=== PATIENT | female | born 1995 | race Hispanic/Latino ===

== ENCOUNTER 2018-04-21 21:23 | Emergency (ER) | payer SELFPAY ==
[2018-04-21] MEDS ORDERED: IBUPROFEN 200 MG TAB PO ONE (23:33)
[2018-04-21] MEDS ORDERED: ACETAMINOPHEN 500 MG TAB ONE (23:33)
[2018-04-21] MEDS ORDERED: IBUPROFEN 400 MG TAB ONE (23:33)
[2018-04-21 23:59] LABS: Absolute Monocytes 0.6 K/uL (0.1-1.3); Absolute Neutrophil 4.2 K/uL (1.8-8.0); Basophils % 0.7 % (0-1.3); Eosinophils % 1.4 % (0-4.4); MCH 29.3 pg (27.0-35.0); MCV 88.8 fL (80-100); MPV 10.1 fL (7.6-11.3); Monocytes % 7.2 % (3.3-12.3)
[2018-04-22 00:05] LABS: Urine Blood NEGATIVE (NEG); Urine Glucose NEGATIVE (NEG); Urine Specific Gravity 1.015 (1.005-1.030)
[2018-04-22 00:06] LABS: Urine Protein NEGATIVE (NEG)
[2018-04-22 00:16] LABS: ALT/SGPT 17 U/L (12-78); AST/SGOT 9 U/L (15-37); Albumin 3.8 g/dL (3.4-5.0); Alkaline Phosphatase 94 U/L (45-117); BUN Blood Urea Nitrogen 9 mg/dL (7-18); Bicarbonate 30 mmol/L (21-32); Bilirubin Direct < 0.1 mg/dL (0-0.2); Bilirubin Total 0.2 mg/dL (0.2-1.0); Glucose Level 97 mg/dL (74-106); Potassium 3.4 mmol/L (3.5-5.1); Protein, Total 7.7 g/dL (6.4-8.2); Sodium Level 141 mmol/L (136-145)
--- NOTE | 2018-04-22 04:43 | EDPHYS ---
Physician Documentation [facility] Name: Kathy Gallegos Age: 22 yrs Sex: Female : 1995 Arrival Date: 04/21/2018 Time: 21:24 Bed 17 Private MD: ED Physician Mauro Antonio HPI: 04/22 02:21 This 22 yrs old Female presents to ER via Ambulatory with complaints of Chest wa Pain. 02:21 The patient or guardian reports chest pain that is located primarily in the anterior wa aspect of right upper chest. The pain does not radiate. Associated signs and symptoms: Pertinent negatives: abdominal pain, cough, shortness of breath. The chest pain is described as sharp. Duration: The patient or guardian reports a single episode, that is still ongoing, and unchanged, and worsening. Modifying factors: The symptoms are alleviated by nothing. the symptoms are aggravated by nothing. Severity of pain: At its worst the pain was moderate in the emergency department the pain is unchanged. The patient has not experienced similar symptoms in the past. The patient has not recently seen a physician. 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 - Social history:: Smoking status: Patient/guardian denies using tobacco. - Ebola Screening: : No symptoms or risks identified at this time. - Family history:: not pertinent. - Hospitalizations: : No recent hospitalization is reported. ROS: 04/22 02:22 Constitutional: Negative for fever, chills, and weight loss, Eyes: Negative for injury, wa pain, redness, and discharge, ENT: Negative for injury, pain, and discharge, Neck: Negative for injury, pain, and swelling, Abdomen/GI: Negative for abdominal pain, nausea, vomiting, diarrhea, and constipation, Back: Negative for injury and pain, : Negative for injury, bleeding, discharge, and swelling, MS/Extremity: Negative for injury and deformity, Skin: Negative for injury, rash, and discoloration, Neuro: Negative for headache, weakness, numbness, tingling, and seizure, Psych: Negative for depression, anxiety, suicide ideation, homicidal ideation, and hallucinations. Cardiovascular: Positive for chest pain, of the anterior aspect of right upper chest, Negative for edema, orthopnea, palpitations. Respiratory: Positive for Negative for cough, dyspnea on exertion, shortness of breath, wheezing. All other systems are negative. Exam: 02:23 Constitutional: This is a well developed, well nourished patient who is awake, alert, wa and in no acute distress. Head/Face: Normocephalic, atraumatic. Eyes: Pupils equal round and reactive to light, extra-ocular motions intact. Lids and lashes normal. Conjunctiva and sclera are non-icteric and not injected. Cornea within normal limits. Periorbital areas with no swelling, redness, or edema. ENT: Nares patent. No nasal discharge, no septal abnormalities noted. Tympanic membranes are normal and external auditory canals are clear. Oropharynx with no redness, swelling, or masses, exudates, or evidence of obstruction, uvula midline. Mucous membranes moist. Neck: Trachea midline, no thyromegaly or masses palpated, and no cervical lymphadenopathy. Supple, full range of motion without nuchal rigidity, or vertebral point tenderness. No Meningismus. Respiratory: Lungs have equal breath sounds bilaterally, clear to auscultation and percussion. No rales, rhonchi or wheezes noted. No increased work of breathing, no retractions or nasal flaring. Abdomen/GI: Soft, non-tender, with normal bowel sounds. No distension or tympany. No guarding or rebound. No evidence of tenderness throughout. Back: No spinal tenderness. No costovertebral tenderness. Full range of motion. Skin: Warm, dry with normal turgor. Normal color with no rashes, no lesions, and no evidence of cellulitis. MS/ Extremity: Pulses equal, no cyanosis. Neurovascular intact. Full, normal range of motion. Neuro: Awake and alert, GCS 15, oriented to person, place, time, and situation. Cranial nerves II-XII grossly intact. Motor strength 5/5 in all extremities. Sensory grossly intact. Cerebellar exam normal. Normal gait. Psych: Awake, alert, with orientation to person, place and time. Behavior, mood, and affect are within normal limits. 02:23 Chest/axilla: Inspection: normal, Palpation: tenderness, that is moderate, of the anterior aspect of right upper chest. 02:23 Cardiovascular: Rate: normal, Rhythm: regular, Pulses: no pulse deficits are appreciated, Heart sounds: normal, Edema: is not appreciated. Vital Signs: 04/21 21:35 BP 123 / 86; Pulse 64; Resp 16; Temp 97.4(TE); Pulse Ox 100% on R/A; Weight 81.65 kg lk1 (R); Height 5 ft. 3 in. (160.02 cm) (R); Pain 8/10; 23:03 BP 102 / 72; Pulse 61; Resp 17 S; Pulse Ox 97% on R/A; jd3 04/22 00:44 BP 102 / 74; Pulse 64; Resp 17 S; Pulse Ox 100% on R/A; jd3 01:57 BP 102 / 74; Pulse 58; Resp 16 S; Pulse Ox 99% on R/A; jd3 03:47 BP 120 / 73; Pulse 65; Resp 16 S; Pulse Ox 98% on R/A; jd3 04:59 BP 105 / 76; Pulse 57; Resp 16 S; Pulse Ox 100% on R/A; jd3 04/21 21:35 Body Mass Index 31.89 (81.65 kg, 160.02 cm) lk1 MDM: 04/21 21:46 Patient medically screened. wv 04/22 02:23 Differential diagnosis: post- x 4 months. reproducible pain. check x-rays. wa consider PE. screen with d-dimer. reassess. 04:50 Data reviewed: vital signs, nurses notes, lab test result(s), radiologic studies. Test wa interpretation: by ED physician or midlevel provider: labs noted wnl. CXR: nml. CT chest: no PE. no acute process. 04/21 23:27 Order name: Basic Metabolic Panel 04/21 23:27 Order name: CBC with Diff 04/21 23:27 Order name: LFT's 04/21 23:27 Order name: Magnesium 04/21 23:27 Order name: D-Dimer; Complete Time: 00:51 04/21 23:27 Order name: Basic Metabolic Panel; Complete Time: 00:51 EDMS 04/21 23:27 Order name: CBC with Automated Diff; Complete Time: 00:51 EDMS 04/21 23:27 Order name: Liver (Hepatic) Function; Complete Time: 00:51 EDMS 04/21 23:27 Order name: Magnesium; Complete Time: 00:51 EDSC 04/21 23:52 Order name: Urine Dipstick--Ancillary (enter results); Complete Time: 00:51 [facility] 04/21 23:52 Order name: Urine --Ancillary (enter results); Complete Time: 00:51 [facility] 04/22 00:51 Order name: Chest Pa And Lat (2 Views) XRAY wv 04/22 01:52 Order name: CT Chest W/ Con wv 04/21 23:27 Order name: Cardiac monitoring; Complete Time: 23:28 wv 04/21 23:27 Order name: IV Saline Lock; Complete Time: 23:52 wv 04/21 23:27 Order name: Labs collected and sent; Complete Time: 23:53 wv 04/21 23:27 Order name: Urine Test (obtain specimen); Complete Time: 23:52 wv 04/21 23:27 Order name: Urine Dipstick-Ancillary (obtain specimen); Complete Time: 23:52 wv Administered Medications: 04/21 23:44 Drug: Tylenol 1000 mg Route: PO; [facility] 04/22 05:00 Follow up: Response: No adverse reaction [facility] 04/21 23:44 Drug: Motrin 600 mg Route: PO; [facility] 04/22 05:00 Follow up: Response: No adverse reaction [facility] Disposition: 04/22/18 04:42 Discharged to Home. Impression: Acute Right Side Chest Pain. - Condition is Stable. - Discharge Instructions: Nonspecific Chest Pain, [id number]. - Prescriptions for Ibuprofen 600 mg Oral Tablet - take 1 tablet by ORAL route every 8 hours As needed take with food; 20 tablet. - Medication Reconciliation Form, Thank You Letter, Antibiotic Education, Prescription Opioid Use, Family Work Release form. - Follow up: Private Physician; When: 2 - 3 days; Reason: Recheck today's complaints. - Problem is new. - Symptoms have improved. - Notes: take pain medicine as prescribed. follow up with your doctor within 3-5 days Signatures: Dispatcher [employer] Gloria Florentino RN RN lk1 Mauro Antonio MD MD wa Davies, Jonathon RN RN jd3 Corrections: (The following items were deleted from the chart) 05:01 04:42 04/22/2018 04:42 Discharged to Home. Impression: Acute Right Side Chest Pain. jd3 Condition is Stable. Forms are Medication Reconciliation Form, Thank You Letter, Antibiotic Education, Prescription Opioid Use. Follow up: Private Physician; When: 2 - 3 days; Reason: Recheck today's complaints. Problem is new. Symptoms have improved. wa
--- NOTE | 2018-04-22 04:43 | ER ---
Nurse's Notes [facility] Name: Kathy Gallegos Age: 22 yrs Sex: Female : 1995 Arrival Date: 04/21/2018 Time: 21:24 Bed 17 Private MD: Diagnosis: Acute Right Side Chest Pain Presentation: 04/21 21:34 Presenting complaint: Patient states: "I have had chest pains before, but not constant. lk1 Now I have had pains in my right side for 3 days and I am having trouble catching my breath.". Transition of care: patient was not received from another setting of care. Onset of symptoms was April 18, 2018. Risk Assessment: Do you want to hurt yourself or someone else? Patient reports no desire to harm self or others. Initial Sepsis Screen: Does the patient meet any 2 criteria? No. Patient's initial sepsis screen is negative. Does the patient have a suspected source of infection? No. Patient's initial sepsis screen is negative. Care prior to arrival: None. 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 - Social history:: Smoking status: Patient/guardian denies using tobacco. - Ebola Screening: : No symptoms or risks identified at this time. - Family history:: not pertinent. - Hospitalizations: : No recent hospitalization is reported. Screenin:04 Abuse screen: Denies threats or abuse. Nutritional screening: No deficits noted. jd3 Tuberculosis screening: No symptoms or risk factors identified. Fall Risk Ambulatory Aid- None/Bed Rest/Nurse Assist (0 pts). Gait- Normal/Bed Rest/Wheelchair (0 pts) Mental Status- Oriented to own ability (0 pts). Total Portillo Fall Scale indicates No Risk (0-24 pts). Assessment: 21:55 General: Appears uncomfortable, Behavior is calm, cooperative, appropriate for age. jd3 Pain: Complains of pain in anterior aspect of right upper chest Pain does not radiate. Quality of pain is described as sharp, Pain began 2-3 days ago. Is continuous. Neuro: Level of Consciousness is awake, alert, obeys commands, Oriented to person, place, time, situation. Cardiovascular: Heart tones S1 S2 present Capillary refill < 3 seconds Patient's skin is warm and dry. Respiratory: Airway is patent Respiratory effort is even, unlabored, Respiratory pattern is regular, symmetrical, Breath sounds are clear bilaterally. GI: Abdomen is round Bowel sounds present X 4 quads. Abd is soft and non tender X 4 quads. : No signs and/or symptoms were reported regarding the genitourinary system. EENT: No signs and/or symptoms were reported regarding the EENT system. Derm: Skin is intact, Skin is dry, Skin is normal, Skin temperature is warm. Musculoskeletal: Circulation, motion, and sensation intact. Range of motion: intact in all extremities. 23:04 Reassessment: Patient appears in no apparent distress at this time. Patient and/or jd3 family updated on plan of care and expected duration. Pain level reassessed. Patient is alert, oriented x 3, equal unlabored respirations, skin warm/dry/pink. 04/22 00:44 Reassessment: Patient appears in no apparent distress at this time. Patient and/or jd3 family updated on plan of care and expected duration. Pain level reassessed. Patient is alert, oriented x 3, equal unlabored respirations, skin warm/dry/pink. 01:58 Reassessment: Patient appears in no apparent distress at this time. Patient and/or jd3 family updated on plan of care and expected duration. Pain level reassessed. Patient is alert, oriented x 3, equal unlabored respirations, skin warm/dry/pink. 02:45 Reassessment: Patient appears in no apparent distress at this time. Patient and/or jd3 family updated on plan of care and expected duration. Pain level reassessed. Patient is alert, oriented x 3, equal unlabored respirations, skin warm/dry/pink. 03:48 Reassessment: Patient appears in no apparent distress at this time. Patient and/or jd3 family updated on plan of care and expected duration. Pain level reassessed. Patient is alert, oriented x 3, equal unlabored respirations, skin warm/dry/pink. 04:58 Reassessment: Patient appears in no apparent distress at this time. Patient and/or jd3 family updated on plan of care and expected duration. Pain level reassessed. Patient is alert, oriented x 3, equal unlabored respirations, skin warm/dry/pink. pt reported understanding of discharge instructions, even and steady gait upon discharge. Vital Signs: 04/21 21:35 BP 123 / 86; Pulse 64; Resp 16; Temp 97.4(TE); Pulse Ox 100% on R/A; Weight 81.65 kg lk1 (R); Height 5 ft. 3 in. (160.02 cm) (R); Pain 8/10; 23:03 BP 102 / 72; Pulse 61; Resp 17 S; Pulse Ox 97% on R/A; jd3 04/22 00:44 BP 102 / 74; Pulse 64; Resp 17 S; Pulse Ox 100% on R/A; jd3 01:57 BP 102 / 74; Pulse 58; Resp 16 S; Pulse Ox 99% on R/A; jd3 03:47 BP 120 / 73; Pulse 65; Resp 16 S; Pulse Ox 98% on R/A; jd3 04:59 BP 105 / 76; Pulse 57; Resp 16 S; Pulse Ox 100% on R/A; jd3 04/21 21:35 Body Mass Index 31.89 (81.65 kg, 160.02 cm) lk1 ED Course: 04/21 21:24 Patient arrived in ED. ds1 21:35 Triage completed. lk1 21:37 Arm band placed on left wrist. lk1 21:46 Mauro Antonio MD is Attending Physician. wa 21:51 Maximo Mcduffie RN is Primary Nurse. jd3 22:04 Patient has correct armband on for positive identification. Bed in low position. Call j light in reach. Side rails up X 1. cryptologic support specialist on. Pulse ox on. NIBP on. 22:04 Patient maintains SpO2 saturation greater than 95% on room air. jd3 23:35 Inserted saline lock: 22 gauge in right antecubital area, using aseptic technique. mw2 Blood collected. 04/22 01:05 Patient moved to radiology via wheelchair. kw 01:05 X-ray completed. Patient tolerated procedure well. kw 01:05 Patient moved back from radiology. kw 01:06 Chest Pa And Lat (2 Views) XRAY In Process Unspecified. EDMS 03:[address] via wheelchair. kw1 03:25 CT completed. Patient tolerated procedure well. Patient moved back from CT. kw1 03:25 CT Chest W/ Con In Process Unspecified. EDKS 04:57 No provider procedures requiring assistance completed. IV discontinued, intact, jd3 bleeding controlled, No redness/swelling at site. Pressure dressing applied. Administered Medications: 04/21 23:44 Drug: Tylenol 1000 mg Route: PO; jd3 04/22 05:00 Follow up: Response: No adverse reaction jd3 04/21 23:44 Drug: Motrin 600 mg Route: PO; jd3 04/22 05:00 Follow up: Response: No adverse reaction jd3 Outcome: 04:42 Discharge ordered by . va 04:57 Discharged to home ambulatory, with family. jd3 04:57 Condition: stable 04:57 Discharge instructions given to patient, Instructed on discharge instructions, follow up and referral plans. medication usage, Demonstrated understanding of instructions, follow-up care, medications, Prescriptions given X 1. 05:01 Patient left the ED. jd3 Signatures: Dispatcher [employer] EDKS Leonor Lloyd Kimberlee kw Kluge, Leah, RN RN lk1 Mauro Antonio MD MD wa Davies, Jonathon RN RN Zarina Bahena kw1 Holli Blanc mw2
--- NOTE | 2018-04-22 08:56 | RAD REPORT ---
EXAM DESCRIPTION: RAD - Chest Pa And Lat (2 Views) - 04/22/2018 1:07 am CLINICAL HISTORY: R side chest pain Chest pain. COMPARISON: Thorax W/ Con dated 04/22/2018 FINDINGS: The lungs are clear. The heart is normal in size. No displaced fractures. IMPRESSION: No acute or concerning finding suspected.
--- NOTE | 2018-04-22 09:16 | RAD REPORT ---
EXAM DESCRIPTION: CT - Thorax W/ Con CLINICAL HISTORY: Chest pain R side chest pain COMPARISON: Chest Pa And Lat (2 Views) dated 04/22/2018 FINDINGS: The lungs are clear. No pleural thickening or pleural effusion. No pneumothorax. No axillary, mediastinal or hilar adenopathy. No concerning bony finding. Small hiatal hernia, mild fatty liver. All CT scans are performed using dose optimization technique as appropriate and may include automated exposure control or mA/KV adjustment according to patient size. IMPRESSION: No acute or worrisome intrathoracic abnormality.
== END 2018-04-22 05:01 | disposition home or self-care (01) ==
LOC: ER 21:23
DX: R07.89 Other chest pain (principal); Z88.1 Allergy status to other antibiotic agents
CPT/HCPCS: 36415; 71046; 71260; 80048; 80076; 81003; 81025; 83735; 85025; 85379; 99285; Q9967

== ENCOUNTER 2018-05-31 11:16 | Emergency (ER) | payer OTHER, SELFPAY ==
[2018-05-31 12:31] LABS: Absolute Lymphocytes (CBC) 1.7 K/uL (0.7-4.9); Absolute Monocytes 0.5 K/uL (0.1-1.3); Absolute Neutrophil 4.7 K/uL (1.8-8.0); Basophils % 0.5 % (0-1.3); Eosinophils % 1.2 % (0-4.4); Hematocrit 38.2 % (36.0-45.0); MCH 30.2 pg (27.0-35.0); MCV 88.8 fL (80-100); MPV 9.5 fL (7.6-11.3); Monocytes % 7.1 % (3.3-12.3); RBC Red Blood Cell Count 4.31 M/uL (3.86-4.86)
[2018-05-31 12:45] LABS: ALT/SGPT 15 U/L (12-78); AST/SGOT 9 U/L (15-37); Albumin 3.4 g/dL (3.4-5.0); Alkaline Phosphatase 76 U/L (45-117); Amylase Level 27 U/L (25-115); BUN Blood Urea Nitrogen 12 mg/dL (7-18); Bicarbonate 30 mmol/L (21-32); Bilirubin Direct 0.1 mg/dL (0-0.2); Bilirubin Total 0.4 mg/dL (0.2-1.0); Glucose Level 80 mg/dL (74-106); Lipase 95 U/L (73-393); Potassium 3.8 mmol/L (3.5-5.1); Protein, Total 7.2 g/dL (6.4-8.2); Sodium Level 139 mmol/L (136-145)
[2018-05-31 12:59] LABS: Specific Gravity 1.025 (1.005-1.030)
[2018-05-31 13:17] LABS: Urine Blood NEGATIVE (NEG); Urine Glucose NEGATIVE (NEG); Urine Protein NEGATIVE (NEG)
[2018-05-31 13:36] LABS: Urine RBC <5 /HPF (NONE SEEN)
[2018-05-31 13:37] LABS: Urine Bacteria <20 /HPF (<20); Urine Culture Reflex Order NOT NEEDED
--- NOTE | 2018-05-31 14:01 | RAD REPORT ---
EXAM DESCRIPTION: US - Transvaginal Study Probe - 05/31/2018 1:35 pm CLINICAL HISTORY: Pelvic pain COMPARISON: none FINDINGS: The uterus measures 9 x 5 x 6 centimeters. A sac is present within the endometrium measuri ng 1.3 x 0.6 x 1.5 centimeters. A pole is not seen. A yolk sac is not clearly visualized. The ovaries are normal in size and echotexture. No significant free fluid is seen. IMPRESSION: Sac within the endometrium probably representing a gestational sac associated with an in trauterine . Followup ultrasound in 1 week is recommended. Serial beta HCG levels should als o be obtained.
--- NOTE | 2018-05-31 15:29 | EDPHYS ---
Physician Documentation [facility] Name: Kathy Gallegos Age: 22 yrs Sex: Female : 1995 Arrival Date: 05/31/2018 Time: 11:19 Bed 8 Private MD: None, None ED Physician Trace Lyons HPI: 05/31 11:56 This 22 yrs old Female presents to ER via Ambulatory with complaints of cp Abdominal Cramping, Vomiting. 11:56 The patient presents with abdominal pain in the lower abdomen. cp 11:56 Onset: The symptoms/episode began/occurred 1 week(s) ago. The symptoms radiate to left cp back. Associated signs and symptoms: Pertinent positives: nausea, vaginal discharge, Pertinent negatives: constipation, diarrhea, dysuria, fever, vomiting, vaginal bleeding. The symptoms are described as crampy. Modifying factors: the symptoms are aggravated by pressure. 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 - Social history:: Smoking status: Patient/guardian denies using tobacco. - Ebola Screening: : No symptoms or risks identified at this time. ROS: 12:00 Constitutional: Negative for body aches, chills, fever, poor PO intake. cp 12:00 Eyes: Negative for injury, pain, redness, and discharge. cp 12:00 ENT: Negative for drainage from ear(s), ear pain, sore throat, difficulty swallowing, difficulty handling secretions. 12:00 Cardiovascular: Negative for chest pain, edema, palpitations. 12:00 Respiratory: Negative for cough, shortness of breath, wheezing. 12:00 Abdomen/GI: Positive for abdominal pain, nausea, of the left lower quadrant, Negative for vomiting, diarrhea, constipation, anorexia, black/tarry stool, rectal bleeding. 12:00 Back: Positive for radiated pain, of the left low back. 12:00 : Positive for vaginal discharge, Negative for urinary symptoms, flank pain, vaginal bleeding. 12:00 Skin: Negative for cellulitis, rash. 12:00 Neuro: Negative for altered mental status, dizziness, headache, weakness. 12:00 All other systems are negative. Exam: 12:07 Constitutional: The patient appears in no acute distress, alert, awake, comfortable, cp non-toxic, well developed, well nourished. 12:07 Head/Face: Normocephalic, atraumatic. cp 12:07 Eyes: Periorbital structures: appear normal, Conjunctiva: normal, no exudate, no cp injection, Sclera: no appreciated abnormality, Lids and lashes: appear normal, bilaterally. 12:07 ENT: External ear(s): are unremarkable, Nose: is normal, Mouth: Lips: moist, Oral mucosa: moist, Posterior pharynx: is normal, airway is patent, no erythema, no exudate, Voice: is normal. 12:07 Chest/axilla: Inspection: normal. cp 12:07 Cardiovascular: Rate: normal, Rhythm: regular. 12:07 Respiratory: the patient does not display signs of respiratory distress, Respirations: normal, no use of accessory muscles, no retractions, no splinting, no tachypnea, labored breathing, is not present, Breath sounds: are clear throughout, no decreased breath sounds, no stridor, no wheezing. 12:07 Abdomen/GI: Inspection: abdomen appears normal, Bowel sounds: active, all quadrants, Palpation: soft, in all quadrants, mild abdominal tenderness, in the left lower quadrant, rebound tenderness, is not appreciated, voluntary guarding, is not appreciated, involuntary guarding, is not appreciated. 12:07 Back: pain, that is mild, of the left low back, ROM is normal, Straight leg raises: of both lower extremities does not illicit pain. 12:07 Skin: cellulitis, is not appreciated, no rash present. Vital Signs: 11:29 BP 121 / 73; Pulse 84; Resp 16; Temp 98.4; Pulse Ox 100% on R/A; Pain 8/10; hb 12:45 BP 113 / 64; Pulse 83; Resp 16; Pulse Ox 100% ; jl7 14:15 BP 109 / 92; Pulse 80; Resp 16; Pulse Ox 100% ; jl7 15:30 BP 112 / 74; Pulse 79; Resp 16 S; Pulse Ox 100% on R/A; jl7 MDM: 11:33 Patient medically screened. cp 15:28 Data reviewed: vital signs, nurses notes, lab test result(s), radiologic studies, cp ultrasound. 15:28 Differential diagnosis: appendicitis, Dysmenorrhea, Ectopic , Endometriosis, cp Menorrhagia, non-specific abd pain, Ovarian Torsion, Pelvic Inflammatory Disease, Pyelonephritis, Tubal Ovarian Abcess, Ureterolithiasis, urinary tract infection. Counseling: I had a detailed discussion with the patient and/or guardian regarding: the historical points, exam findings, and any diagnostic results supporting the discharge/admit diagnosis, lab results, radiology results, the need for outpatient follow up, an OB/Gyne specialist, to return to the emergency department if symptoms worsen or persist or if there are any questions or concerns that arise at home. Special discussion: Based on the patient's Hx, exam, and Dx evaluation, there is no indication for emergent surgery or inpatient Tx. It is understood by the patient/guardian that if the Sx's persist or worsen they need to return immediately for re-evaluation. ED course: VSS. Discussed results of labs and US that showed early IUP. Will discharge to home with instructions for pelvic rest and to repeat beta-hcg in 48 hrs and US 1 week. 05/31 11:39 Order name: Urine Microscopic Only cp 05/31 11:56 Order name: Amylase, Serum cp 05/31 11:56 Order name: Basic Metabolic Panel cp 05/31 11:56 Order name: CBC with Diff cp 05/31 11:56 Order name: Creatinine for Radiology cp 05/31 11:56 Order name: Hepatic Function cp 05/31 11:56 Order name: Lipase cp 05/31 12:24 Order name: Urine Dipstick--Ancillary (enter results) eb 05/31 12:34 Order name: CBC with Automated Diff; Complete Time: 12:53 EDMS 05/31 12:45 Order name: Basic Metabolic Panel; Complete Time: 12:53 EDMS 05/31 12:45 Order name: Liver (Hepatic) Function; Complete Time: 12:53 EDMS 05/31 12:45 Order name: Amylase Level; Complete Time: 12:53 EDMS 05/31 12:45 Order name: Lipase; Complete Time: 12:53 EDMS 05/31 12:45 Order name: Creatinine (Radiology Only); Complete Time: 12:53 EDMS 05/31 11:39 Order name: Urine Dipstick-Ancillary (obtain specimen); Complete Time: 12:22 cp 05/31 11:39 Order name: Urine Test (obtain specimen); Complete Time: 12:22 05/31 11:56 Order name: IV Saline Lock; Complete Time: 12:22 05/31 11:56 Order name: Labs collected and sent; Complete Time: 12:22 05/31 12:59 Order name: Test, Urine; Complete Time: 14:17 EDMS 05/31 13:01 Order name: US Transvaginal Study (Probe) 05/31 13:13 Order name: HCG-Quantitative 05/31 13:17 Order name: Urine Dipstick-Ancillary; Complete Time: 14:17 EDMS 05/31 13:37 Order name: Urine Microscopic Only; Complete Time: 14:17 EDMS 05/31 13:46 Order name: HCG, Quantitative; Complete Time: 14:17 EDMS 05/31 14:01 Order name: US; Complete Time: 14:17 EDMS 05/31 14:21 Order name: Rh Type 05/31 14:21 Order name: LAB Add On 05/31 15:36 Order name: ABO/RH typing; Complete Time: 15:56 EDMS Administered Medications: No medications were administered Disposition: 19:05 Co-signature as Attending Physician, Trace Lyons MD. rn Disposition: 05/31/18 15:29 Discharged to Home. Impression: related conditions, unspecified, first trimester, Lower abdominal pain, unspecified. - Condition is Stable. - Discharge Instructions: Abdominal Pain During , Pelvic Rest. - Prescriptions for Vitamin 27- 0.8 mg Oral Tablet - take 1 tablet by ORAL route once daily; 60 tablet. - Medication Reconciliation Form, Thank You Letter, Antibiotic Education, Prescription Opioid Use form. - Follow up: Private Physician; When: 48 Hours; Reason: Repeat Beta-HCG (48 Hours), 1 week f/u for repeat ultrasound. - Problem is new. - Symptoms have improved. Signatures: Dispatcher [employer] EDTrace Thompson MD MD rn Page, Corey, PA PA cp Baxter, Heather, RN RN hb Leal, Jahala, RN RN jl7 Corrections: (The following items were deleted from the chart) 15:57 15:29 05/31/2018 15:29 Discharged to Home. Impression: related conditions, jl7 unspecified, first trimester; Lower abdominal pain, unspecified. Condition is Stable. Forms are Medication Reconciliation Form, Thank You Letter, Antibiotic Education, Prescription Opioid Use. Follow up: Private Physician; When: 48 Hours; Reason: Repeat Beta-HCG (48 Hours), 1 week f/u for repeat ultrasound. Problem is new. Symptoms have improved. cp
--- NOTE | 2018-05-31 15:29 | ER ---
Nurse's Notes [facility] Name: Kathy Gallegos Age: 22 yrs Sex: Female : 1995 Arrival Date: 05/31/2018 Time: 11:19 Bed 8 Private MD: None, None Diagnosis: related conditions, unspecified, first trimester;Lower abdominal pain, unspecified Presentation: 05/31 11:27 Presenting complaint: Patient states: Left sided abdominal pain that radiates to left hb mid back and nausea x 1 week. Denies urinary s/s. Reports normal bowels. Transition of care: patient was not received from another setting of care. Onset of symptoms was May 25, 2018. Care prior to arrival: None. 11:27 Method Of Arrival: Ambulatory 11:27 Acuity: SPRING 3 hb 15:30 Risk Assessment: Do you want to hurt yourself or someone else? Patient reports no jl7 desire to harm self or others. Initial Sepsis Screen: Does the patient meet any 2 criteria? No. Patient's initial sepsis screen is negative. Does the patient have a suspected source of infection? No. Patient's initial sepsis screen is negative. 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 - Social history:: Smoking status: Patient/guardian denies using tobacco. - Ebola Screening: : No symptoms or risks identified at this time. Screenin:15 Abuse screen: Denies threats or abuse. Denies injuries from another. Nutritional ss screening: No deficits noted. Tuberculosis screening: Never had TB. Fall Risk None identified. Assessment: 12:15 General: Appears in no apparent distress. comfortable, Behavior is calm, cooperative, ss Denies fever, chills. Pain: Complains of pain in suprapubic area, right lower quadrant and left lower quadrant Pain currently is 8 out of 10 on a pain scale. Pain began x 1 week Is intermittent. Neuro: Level of Consciousness is awake, alert, obeys commands, Oriented to person, place, time, situation. Cardiovascular: Pulses are palpable in right radial artery and left radial artery. Respiratory: Airway is patent Respiratory effort is even, unlabored, Respiratory pattern is regular, symmetrical. GI: Bowel sounds present X 4 quads. Abd is soft and non tender X 4 quads. Patient currently denies cramping, nausea, vomiting. : Urine is clear, Denies burning with urination, urinary frequency, vaginal bleeding. EENT: Nares are clear Oral mucosa is moist. Derm: Skin is intact, is healthy with good turgor, Skin is pink, warm \T\ dry. normal. Musculoskeletal: Circulation, motion, and sensation intact. Range of motion: intact in all extremities, Swelling absent. 13:15 Reassessment: Patient and/or family updated on plan of care and expected duration. Pain jl7 level reassessed. Patient is alert, oriented x 3, equal unlabored respirations, skin warm/dry/pink. 14:15 Reassessment: Patient and/or family updated on plan of care and expected duration. Pain jl7 level reassessed. Patient is alert, oriented x 3, equal unlabored respirations, skin warm/dry/pink. 15:29 Reassessment: Pt will be discharged once lab results are complete. jl7 Vital Signs: 11:29 BP 121 / 73; Pulse 84; Resp 16; Temp 98.4; Pulse Ox 100% on R/A; Pain 8/10; hb 12:45 BP 113 / 64; Pulse 83; Resp 16; Pulse Ox 100% ; jl7 14:15 BP 109 / 92; Pulse 80; Resp 16; Pulse Ox 100% ; jl7 15:30 BP 112 / 74; Pulse 79; Resp 16 S; Pulse Ox 100% on R/A; jl7 ED Course: 11:19 Patient arrived in ED. sb2 11:20 None, None is Private Physician. sb2 11:29 Triage completed. hb 11:29 Arm band placed on right wrist. hb 11:33 Terell Ray PA is PHCP. cp 11:33 Trace Lyons MD is Attending Physician. cp 12:10 Brodie Diaz RN is Primary Nurse. jl7 12:14 Inserted saline lock: 20 gauge in right antecubital area, using aseptic technique. ss Blood collected. 12:14 Urine collected: clean catch specimen, clear. ss 12:15 Patient has correct armband on for positive identification. Bed in low position. Call ss light in reach. Side rails up X 1. 12:23 Urine Microscopic Only Sent. ss 12:23 Amylase, Serum Sent. ss 12:23 Basic Metabolic Panel Sent. ss 12:23 CBC with Diff Sent. ss 12:23 Creatinine for Radiology Sent. ss 12:23 Hepatic Function Sent. ss 12:23 Lipase Sent. ss 13:14 Note: US DONE PORTABLE/BEDSIDE IN ER. hr 15:32 Rh Type Sent. jl7 15:32 LAB Add On Sent. jl7 15:55 No provider procedures requiring assistance completed. IV discontinued, intact, jl7 bleeding controlled, No redness/swelling at site. Pressure dressing applied. Administered Medications: No medications were administered Outcome: 15:29 Discharge ordered by . elena 15:55 Discharged to home ambulatory. jl7 15:55 Condition: stable 15:55 Discharge instructions given to patient, Instructed on discharge instructions, follow up and referral plans. medication usage, Demonstrated understanding of instructions, follow-up care, medications, Prescriptions given X 1. 15:57 Patient left the ED. jl7 Signatures: Mishel Garvey Shelby, RN RN ss Terell Ray, PA PA cp Yulia Eagle, RN RN Brodie Diaz RN RN jl7 Kim Baltazar sb2
== END 2018-05-31 15:57 | disposition home or self-care (01) ==
LOC: ER 11:16
DX: R10.30 Lower abdominal pain, unspecified (principal); Z3A.00 Weeks of gestation of pregnancy not specified; Z88.1 Allergy status to other antibiotic agents
CPT/HCPCS: 36415; 76830; 80048; 80076; 81003; 81015; 81025; 82150; 83690; 84702; 85025; 86900; 86901; 99283

== ENCOUNTER 2018-09-02 12:09 | Emergency (ER) | payer OTHER ==
--- NOTE | 2018-09-02 16:36 | ER ---
Nurse's Notes [facility] Name: Kathy Gallegos Age: 23 yrs Sex: Female : 1995 Arrival Date: 09/02/2018 Time: 12:12 Bed Treatment Private MD: None, None Diagnosis: Acute upper respiratory infection, unspecified Presentation: 09/02 12:17 Presenting complaint: Patient states: Cough, congestion, and body aches for 5 days. aj Denies fever. Transition of care: patient was not received from another setting of care. Onset of symptoms was August 28, 2018. Risk Assessment: Do you want to hurt yourself or someone else? Patient reports no desire to harm self or others. Initial Sepsis Screen: Does the patient meet any 2 criteria? No. Patient's initial sepsis screen is negative. Does the patient have a suspected source of infection? No. Patient's initial sepsis screen is negative. Care prior to arrival: None. 12:17 Method Of Arrival: Ambulatory 12:17 Acuity: SPRING 3 aj Triage Assessment: 12:19 General: Appears in no apparent distress. comfortable, Behavior is calm, cooperative, aj appropriate for age. Pain: Denies pain. EENT: Reports nasal congestion nasal discharge. Neuro: Level of Consciousness is awake, alert, obeys commands, Oriented to person, place, time, situation, Appropriate for age. Respiratory: Reports shortness of breath cough that is. Derm: Skin is intact, is healthy with good turgor, Skin is pink, warm \T\ dry. normal. Historical: - Allergies: 12:19 Amoxicillin; aj - Home Meds: 12:19 Albuterol Inhl [Active]; aj - PMHx: 12:19 None; aj - PSHx: 12:19 None; aj - Immunization history:: Adult Immunizations up to date. - Social history:: Smoking status: Patient/guardian denies using tobacco. - Ebola Screening: : Patient negative for fever greater than or equal to 101.5 degrees Fahrenheit, and additional compatible Ebola Virus Disease symptoms Patient denies exposure to infectious person Patient denies travel to an Ebola-affected area in the 21 days before illness onset No symptoms or risks identified at this time. Screenin:00 Abuse screen: Denies threats or abuse. Denies injuries from another. Nutritional dm5 screening: No deficits noted. Tuberculosis screening: No symptoms or risk factors identified. Fall Risk None identified. Assessment: 15:00 Reassessment: Patient appears in no apparent distress at this time. No changes from dm5 previously documented assessment. Patient and/or family updated on plan of care and expected duration. Pain level reassessed. Patient is alert, oriented x 3, equal unlabored respirations, skin warm/dry/pink. General: Appears in no apparent distress. comfortable, Behavior is calm, cooperative. Neuro: No deficits noted. Level of Consciousness is awake, alert, obeys commands, Oriented to person, place, time. Cardiovascular: No deficits noted. Capillary refill < 3 seconds. Respiratory: Reports cough that is Airway is patent Respiratory effort is even, unlabored, Respiratory pattern is regular, Breath sounds are clear bilaterally. GI: No deficits noted. : No deficits noted. EENT: No deficits noted. Derm: No deficits noted. Musculoskeletal: No deficits noted. Vital Signs: 12:19 BP 110 / 66; Pulse 108; Resp 19; Temp 98.6(O); Pulse Ox 97% on R/A; Weight 87.09 kg; aj Height 5 ft. 3 in. (160.02 cm); 15:24 BP 110 / 70; Pulse 100; Resp 20; Temp 98.6; Pulse Ox 99% on R/A; dm5 12:19 Body Mass Index 34.01 (87.09 kg, 160.02 cm) aj Vitals: 15:24 Heart Tones 148. dm5 ED Course: 12:12 Patient arrived in ED. mr 12:13 None, None is Private Physician. mr 12:18 Triage completed. aj 12:19 Arm band placed on left wrist. Patient placed in waiting room, Patient notified of wait aj time. 14:31 Jensen Ramos NP is PHCP. pm1 14:31 Terell Dsouza MD is Attending Physician. pm1 15:00 Patient has correct armband on for positive identification. dm5 15:00 No provider procedures requiring assistance completed. Patient did not have IV access dm5 during this emergency room visit. 15:03 Mary Rivas, RN is Primary Nurse. dm5 15:57 Throat Culture Sent. dm5 Administered Medications: No medications were administered Outcome: 16:04 Discharge ordered by MD. pm1 16:21 Discharged to home ambulatory. ss 16:21 Condition: good 16:21 Discharge instructions given to patient, Instructed on discharge instructions, follow up and referral plans. medication usage, Demonstrated understanding of instructions, follow-up care, medications. 16:21 Patient left the ED. Signatures: Mary Rivas, RN Viv Smith RN RN aj Rivera, Mary mr Sanjana Chung, Jensen Montero RN, MARCO BUDDHIST MONK pm1
--- NOTE | 2018-09-02 16:36 | EDPHYS ---
Physician Documentation [facility] Name: Kathy Gallegos Age: 23 yrs Sex: Female : 1995 Arrival Date: 09/02/2018 Time: 12:12 Bed Treatment Private MD: None, None ED Physician Terell Dsouza HPI: 09/02 15:30 This 23 yrs old Female presents to ER via Ambulatory with complaints of Cough, pm1 Congestion, 18 wks . 15:30 The patient or guardian reports cough, with no sputum. Onset: The symptoms/episode pm1 began/occurred 2 day(s) ago. Severity of symptoms: in the emergency department the symptoms are unchanged. Modifying factors: The symptoms are alleviated by nothing, the symptoms are aggravated by nothing. Associated signs and symptoms: Pertinent positives: sore throat, Pertinent negatives: chest pain, diarrhea, ear ache, fever, nausea, vomiting. The patient has not experienced similar symptoms in the past. The patient has not recently seen a physician. Historical: - Allergies: 12:19 Amoxicillin; aj - Home Meds: 12:19 Albuterol Inhl [Active]; aj - PMHx: 12:19 None; aj - PSHx: 12:19 None; aj - Immunization history:: Adult Immunizations up to date. - Social history:: Smoking status: Patient/guardian denies using tobacco. - Ebola Screening: : Patient negative for fever greater than or equal to 101.5 degrees Fahrenheit, and additional compatible Ebola Virus Disease symptoms Patient denies exposure to infectious person Patient denies travel to an Ebola-affected area in the 21 days before illness onset No symptoms or risks identified at this time. ROS: 15:30 Constitutional: Negative for fever, chills, and weight loss, Eyes: Negative for injury, pm1 pain, redness, and discharge, Neck: Negative for injury, pain, and swelling. 15:30 Cardiovascular: Negative for chest pain, palpitations, and edema. 15:30 Abdomen/GI: Negative for abdominal pain, nausea, vomiting, diarrhea, and constipation, Back: Negative for injury and pain, : Negative for injury, bleeding, discharge, and swelling, MS/Extremity: Negative for injury and deformity, Skin: Negative for injury, rash, and discoloration, Neuro: Negative for headache, weakness, numbness, tingling, and seizure. 15:30 ENT: Positive for sore throat, Negative for ear pain, sinus congestion, sinus pain. 15:30 Respiratory: Positive for cough, Negative for shortness of breath, sputum production, wheezing. Exam: 15:30 Constitutional: This is a well developed, well nourished patient who is awake, alert, pm1 and in no acute distress. Head/Face: Normocephalic, atraumatic. Eyes: Pupils equal round and reactive to light, extra-ocular motions intact. Lids and lashes normal. Conjunctiva and sclera are non-icteric and not injected. Cornea within normal limits. Periorbital areas with no swelling, redness, or edema. ENT: Nares patent. No nasal discharge, no septal abnormalities noted. Tympanic membranes are normal and external auditory canals are clear. Oropharynx with no redness, swelling, or masses, exudates, or evidence of obstruction, uvula midline. Mucous membranes moist. Neck: Trachea midline, no thyromegaly or masses palpated, and no cervical lymphadenopathy. Supple, full range of motion without nuchal rigidity, or vertebral point tenderness. No Meningismus. Chest/axilla: Normal chest wall appearance and motion. Nontender with no deformity. No lesions are appreciated. Cardiovascular: Regular rate and rhythm with a normal S1 and S2. No gallops, murmurs, or rubs. Normal PMI, no JVD. No pulse deficits. 15:30 Abdomen/GI: Soft, non-tender, with normal bowel sounds. No distension or tympany. No guarding or rebound. No evidence of tenderness throughout. Back: No spinal tenderness. No costovertebral tenderness. Full range of motion. Skin: Warm, dry with normal turgor. Normal color with no rashes, no lesions, and no evidence of cellulitis. MS/ Extremity: Pulses equal, no cyanosis. Neurovascular intact. Full, normal range of motion. 15:30 Respiratory: the patient does not display signs of respiratory distress, Respirations: normal, Breath sounds: are clear throughout, no bronchial sounds, no decreased breath sounds, no rales, rhonchi, no stridor, no wheezing. 15:30 Neuro: Orientation: is normal, Motor: is normal, Sensation: is normal, no obvious gross deficits. Vital Signs: 12:19 BP 110 / 66; Pulse 108; Resp 19; Temp 98.6(O); Pulse Ox 97% on R/A; Weight 87.09 kg; aj Height 5 ft. 3 in. (160.02 cm); 15:24 BP 110 / 70; Pulse 100; Resp 20; Temp 98.6; Pulse Ox 99% on R/A; dm5 12:19 Body Mass Index 34.01 (87.09 kg, 160.02 cm) aj MDM: 14:42 Patient medically screened. [facility] 16:02 Data reviewed: vital signs. Data interpreted: Pulse oximetry: on room air is 99 %. pm1 Interpretation: normal. Counseling: I had a detailed discussion with the patient and/or guardian regarding: the historical points, exam findings, and any diagnostic results supporting the discharge/admit diagnosis, lab results, the need for outpatient follow up, to return to the emergency department if symptoms worsen or persist or if there are any questions or concerns that arise at home. 09/02 14:54 Order name: Flu; Complete Time: 15:53 pm1 09/02 14:58 Order name: Strep; Complete Time: 15:53 pm1 09/02 14:58 Order name: FHT's; Complete Time: 15:28 pm1 09/02 15:53 Order name: Throat Culture EDMS Administered Medications: No medications were administered Disposition: 09/02/18 16:04 Discharged to Home. Impression: Acute upper respiratory infection, unspecified. - Condition is Stable. - Discharge Instructions: Upper Respiratory Infection, Adult. - Work release form, Family Work Release, Medication Reconciliation Form, Thank You Letter, Antibiotic Education form. - Follow up: Emergency Department; When: As needed; Reason: Worsening of condition. Follow up: Private Physician; When: 2 - 3 days; Reason: Recheck today's complaints, Continuance of care, Re-evaluation by your physician. - Problem is new. - Symptoms have improved. Addendum: 09/05/2018 06:47 Co-signature as Attending Physician, Terell Dsouza MD I agree with the assessment and c joseph plan of care. Signatures: Dispatcher [employer] EDMS Viv Locke RN RN aj Anderson, Corey, MD MD cha Smirch, Shelby, RN RN ss Marinas, Patrick, MAR[employer] ENVIRONMENTAL SERVICES SPECIALIST pm1 Corrections: (The following items were deleted from the chart) 09/02 16:21 16:04 09/02/2018 16:04 Discharged to Home. Impression: Acute upper respiratory ss infection, unspecified. Condition is Stable. Forms are Medication Reconciliation Form, Thank You Letter, Antibiotic Education, Prescription Opioid Use. Follow up: Emergency Department; When: As needed; Reason: Worsening of condition. Follow up: Private Physician; When: 2 - 3 days; Reason: Recheck today's complaints, Continuance of care, Re-evaluation by your physician. Problem is new. Symptoms have improved. pm1
== END 2018-09-02 16:21 | disposition home or self-care (01) ==
LOC: ER 12:09
DX: J06.9 Acute upper respiratory infection, unspecified (principal); Z3A.18 18 weeks gestation of pregnancy; Z88.1 Allergy status to other antibiotic agents
CPT/HCPCS: 87070; 87081; 87804; 99283

== ENCOUNTER 2019-01-20 02:03 | Inpatient (IN) | payer OTHER ==
--- OUTSIDE RECORDS SUMMARY | 2019-01-20 05:47 | XMS REPORT ---
:1995 Author Organization [facility] Address [address] [place] [address] [address] [place] [address] Care Team Providers Name Role Phone Unavailable Unavailable Unavailable Payers Payer Name Policy Type Policy Number Effective Date Expiration Date Problems This patient has no known problems. Allergies, Adverse Reactions, Alerts Allergy Name Allergy Status Severity Reaction(s) Onset Inactive Treating Comments Type Date Date Clinician amoxicillin DA Active U 2017-11 00:00:0 0 watermelon DA Active U 2017-11 00:00:0 0 banana DA Active U 2017-11 00:00:0 0 Medications This patient has no known medications.
[2019-01-20] MEDS ORDERED: METHYLERGONOVINE 0.2MG/ML AMP IM PRN (06:25)
[2019-01-20] MEDS ORDERED: Ringers Lactate 1,000 ML IV PRN (06:25)
[2019-01-20] MEDS ORDERED: CARBOPROST TROME 250 MCG/ML IM PRN (06:25)
[2019-01-20] MEDS ORDERED: Ringers Lactate 1,000 ML IV SCH (07:00)
[2019-01-20] MEDS ORDERED: OXYTOCIN/LR 20 UNIT/1,000 ML BAG IV SCH ×2 (07:00→09:00)
[2019-01-20 07:28] VITALS: BMI 36.5
[2019-01-20] MEDS ORDERED: FENTANYL CITR 100 MCG/2 ML IV ONE (07:51)
[2019-01-20] MEDS ORDERED: ROPIVACAINE HCL 100 ML IV PRN (07:52)
[2019-01-20] MEDS ORDERED: ROPIVACAINE HCL 0.2% 20ML AMP IV ONE (07:54)
[2019-01-20] MEDS ORDERED: LIDOCAINE 1% 20 ML MDV ONE (08:16)
[2019-01-20] MEDS ORDERED: DOCUSATE NA/SENNA CONC 1 TAB PO PRN (08:18)
[2019-01-20] MEDS ORDERED: DIPHENHYDRAMINE 25 MG TAB/CAP PO PRN (08:18)
[2019-01-20] MEDS ORDERED: BISACODYL 10 MG RECTAL SUPP RECT PRN (08:18)
[2019-01-20] MEDS ORDERED: IBUPROFEN 200 MG TAB PO PRN (08:18)
[2019-01-20] MEDS ORDERED: Oxycodone HCl/Acetaminophen 1 TAB TAB PO PRN ×2 (08:18)
[2019-01-20 08:20] LABS: RPR Titer ND
[2019-01-20 08:21] LABS: Absolute Lymphocytes (CBC) 2.8 K/uL (0.7-4.9); Absolute Monocytes 0.8 K/uL (0.1-1.3); Absolute Neutrophil 10.3 K/uL (1.8-8.0); Basophils % 0.4 % (0-1.3); Eosinophils % 0.4 % (0-4.4); Hematocrit 38.7 % (36.0-45.0); Lymphocytes % 20.3 % (15.3-44.8); MPV 9.6 fL (7.6-11.3); Monocytes % 5.4 % (3.3-12.3); RBC Red Blood Cell Count 4.49 M/uL (3.86-4.86)
--- NOTE | 2019-01-20 11:56 | PREOPHP ---
Date of Admission: 01/20/2019 A 23-year-old, 3, para 1, at 39 weeks 1 day, Rh positive, immune to Rubella. Negative beta s trep screen. Cervix is 3.5 cm, 50% to 60% effaced, vertex, well applied. Rupture of membranes, nicky r fluid. She is favian regularly on 2 milliunits, anticipate rather rapid delivery once she get s to 5 cm. The patient says she is trying to go natural but may opt for an epidural, receive course which she chooses. Full admission and labor talk given. VIJAYA/GERRY Voice ID: [id number]
[2019-01-20] MEDS ORDERED: Ringers Lactate 2,000 ML IV ONE (12:11)
[2019-01-20 20:55] LABS: RPR (Rapid Plasma Reagin) NON-REACT (NON-REACT)
--- NOTE | 2019-01-21 07:39 | DS ---
A 23-year-old, 3, para 1, 39 weeks 1 day. Delivery of a 7 pounds 4 ounce female. Apgars 9 a nd 9 or even 9 and 10. No episiotomy. No laceration. 400 cc blood loss. Beta strep negative. Rh positive. Immune to Rubella. She has had her Tdap immunization. afebrile, ambulating, a nd voiding. Lochia is normal. She will be dismissed whenever the baby is dismissed. To report back to my office in 6 weeks for followup. To report any temperature elevation of 100 degrees or greater , severe pain, heavy bleeding, or any other type of abnormality. Dismissed with tramadol for analges ia, although she may elect to take Motrin instead. Final Diagnoses: Term intrauterine at 39 weeks and 1 day. Spontaneous vaginal delivery. Tdap has already been administered. VIJAYA/GERRY Voice ID: [id number] Report ID: [id number]
[2019-01-21 07:52] VITALS: BP 93/52; TEMP 97.1
--- NOTE | 2019-01-23 08:35 | OP ---
Surgeon: Ghulam Loomis MD A 23-year-old, 3, para 1, 39 weeks 1 day for induction 3.5 cm on admission, 50% to 60% efface d, vertex, well applied. Rell regularly. Rupture of membranes. The patient went to a very a ctive labor pattern within the next hour to hour and twenty minutes was complete and on the perineum. Second stage of 5 minutes or less. Spontaneous vaginal delivery of an estimated 7-pound plus femal e, Apgars 9 and 9. No episiotomy. No laceration. Schultze delivery of the placenta was inspected a nd noted to be intact and normal. Estimated blood loss 400 cc. Rh positive, immune to Rubella. Neg ative beta strep screen. The patient tolerated all procedures well. Final Diagnoses: Term intrauterine 39 weeks 1 day, spontaneous vaginal delivery, natural c ashtyn. VIJAYA/GERRY Voice ID: [id number] Report ID: [id number]
[2019-01-26 03:12] LABS: HBsAG Nonreactive (Nonreactive)
== END 2019-01-21 10:30 | disposition home or self-care (01) | DRG 807 ==
LOC: 2ND-WC 05:46
PROVIDERS: ADMIT Specialist; ATTEND Specialist
PROC: 10E0XZZ Delivery of Products of Conception, External Approach (ICD-10-PCS; principal; 2019-01-20)
DX: O80 Encounter for full-term uncomplicated delivery (principal); Z37.0 Single live birth; Z3A.39 39 weeks gestation of pregnancy
CPT/HCPCS: 36415; 85025; 86592; 86901; 87340; 99218; J2210; J2590

== ENCOUNTER 2019-07-29 10:41 | Emergency (ER) | payer OTHER, SELFPAY ==
[2019-07-29 11:36] LABS: Absolute Lymphocytes (CBC) 1.9 K/uL (0.7-4.9); Basophils % 0.5 % (0-1.3); Hematocrit 33.3 % (36.0-45.0); Lymphocytes % 30.2 % (15.3-44.8); MPV 10.1 fL (7.6-11.3); RBC Red Blood Cell Count 3.96 M/uL (3.86-4.86)
[2019-07-29 11:48] LABS: BUN Blood Urea Nitrogen 10 mg/dL (7-18); Bicarbonate 28 mmol/L (21-32); Glucose Level 94 mg/dL (74-106); Magnesium 1.9 mg/dL (1.8-2.4); Sodium Level 142 mmol/L (136-145)
--- NOTE | 2019-07-29 11:55 | ER ---
Nurse's Notes [facility] Name: Kathy Gallegos Age: 23 yrs Sex: Female : 1995 Arrival Date: 07/29/2019 Time: 10:43 Bed 18 Private MD: Diagnosis: Palpitations;Ventricular premature depolarization Presentation: 07/29 10:56 Presenting complaint: Patient states: "This morning I woke up with heart palpitations aj1 and I have been having them already for a week and a half and pain where my lung is at and tightness in the middle of my chest" Patient also reports shortness of breath. Denies cough, fever. Transition of care: patient was not received from another setting of care. Onset of symptoms was 2018. Risk Assessment: Do you want to hurt yourself or someone else? Patient reports no desire to harm self or others. Initial Sepsis Screen: Does the patient meet any 2 criteria? No. Patient's initial sepsis screen is negative. Does the patient have a suspected source of infection? No. Patient's initial sepsis screen is negative. Care prior to arrival: None. 10:56 Method Of Arrival: Ambulatory aj1 10:56 Acuity: SPRING 3 aj1 Triage Assessment: 10:57 General: Appears in no apparent distress. comfortable, Behavior is calm, cooperative, aj1 appropriate for age. Pain: Pain currently is 6 out of 10 on a pain scale. Neuro: Level of Consciousness is awake, alert, obeys commands. Cardiovascular: Patient's skin is warm and dry. Cardiovascular: Reports chest pain, palpitations, shortness of breath. Respiratory: Airway is patent Respiratory effort is even, unlabored, Respiratory pattern is regular, symmetrical. 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 - Social history:: Smoking status: Patient/guardian denies using tobacco. - Ebola Screening: : Patient denies travel to an Ebola-affected area in the 21 days before illness onset. Screenin:20 Abuse screen: Denies threats or abuse. Nutritional screening: No deficits noted. em Tuberculosis screening: No symptoms or risk factors identified. Fall Risk None identified. Assessment: 11:20 General: Appears in no apparent distress. comfortable, Behavior is calm, cooperative, em Denies fever. Pain: Denies pain. Neuro: Level of Consciousness is awake, alert, obeys commands, Oriented to person, place, time, situation, Cardiovascular: Reports palpitations, shortness of breath, Heart tones S1 S2 present Capillary refill < 3 seconds Patient's skin is warm and dry. Pulses are all present. Rhythm is sinus rhythm. Respiratory: Airway is patent Respiratory effort is even, unlabored, Respiratory pattern is regular, symmetrical. GI: Patient currently denies nausea, vomiting. Derm: Skin is intact, is healthy with good turgor, Skin is pink, warm \\T\\ dry. Musculoskeletal: Capillary refill < 3 seconds, Range of motion: intact in all extremities. 11:20 Reassessment: I agree with assessment completed by Richard Metcalf LVN . aa5 12:06 Reassessment: Patient appears in no apparent distress at this time. Patient and/or em family updated on plan of care and expected duration. Pain level reassessed. Patient is alert, oriented x 3, equal unlabored respirations, skin warm/dry/pink. Vital Signs: 10:57 BP 138 / 70; Pulse 71; Resp 18; Temp 97.2; Pulse Ox 98% on R/A; Weight 86.18 kg (R); aj1 Height 5 ft. 3 in. (160.02 cm) (R); Pain 6/10; 12:09 BP 114 / 78; Pulse 72; Resp 18; Pulse Ox 99% on R/A; Pain 0/10; em 10:57 Body Mass Index 33.66 (86.18 kg, 160.02 cm) aj1 ED Course: 10:43 Patient arrived in ED. as 10:57 Triage completed. aj1 10:57 Arm band placed on Patient placed in an exam room. aj1 10:59 Jeremy An PA is PHCP. jr8 10:59 Trace Lyons MD is Attending Physician. jr8 11:04 Richard Metcalf LVN is Primary Nurse. em 11:20 Patient has correct armband on for positive identification. Placed in gown. Bed in low em position. Call light in reach. Side rails up X2. alarm security or surveillance monitor on. Pulse ox on. NIBP on. 11:30 Initial lab(s) drawn, by me, sent to lab. Urine collected: clean catch specimen, blood em tinged, EKG done, by ED staff, reviewed by Jeremy VIEIRA. 11:30 Patient maintains SpO2 saturation greater than 95% on room air. em 11:54 Darrell Kate MD is Referral Physician. jr8 11:58 XRAY Chest (1 view) In Process Unspecified. EDMS 12:06 No provider procedures requiring assistance completed. IV discontinued, intact, em bleeding controlled, No redness/swelling at site. Pressure dressing applied. Administered Medications: No medications were administered Outcome: 11:54 Discharge ordered by . jr8 12:06 Discharged to home ambulatory. em 12:06 Condition: good 12:06 Discharge instructions given to patient, Instructed on discharge instructions, follow up and referral plans. Demonstrated understanding of instructions, follow-up care. 12:13 Patient left the ED. em Signatures: Dispatcher [employer] EDCO Yue Monte, RN RN aj1 Richard Metcalf, NETWORK TECHNICAL ANALYST NETWORK TECHNICAL ANALYST em Shirin Reddy Audri, RN RN aa5 Jeremy An, ISHA PA jr8
--- NOTE | 2019-07-29 11:56 | EDPHYS ---
Physician Documentation [facility] Name: Kathy Gallegos Age: 23 yrs Sex: Female : 1995 Arrival Date: 07/29/2019 Time: 10:43 Bed 18 Private MD: ED Physician Trace Lyons HPI: 07/29 11:39 This 23 yrs old Female presents to ER via Ambulatory with complaints of Chest jr8 Pressure, Palpitations. 11:39 The patient presents with a history of heart skipping beats. Context: The symptoms jr8 occur at rest. Onset: The symptoms/episode began/occurred gradually, 1 week(s) ago. Duration: The patient or guardian reports multiple episodes, that are intermittent, that wax and wane, with no pattern. Modifying factors: The symptoms are aggravated by nothing. The symptoms are alleviated by nothing. Associated signs and symptoms: Pertinent positives: chest pain, SOB. Severity of symptoms: At their worst the symptoms were mild in the emergency department the symptoms are unchanged. The patient has not experienced similar symptoms in the past. The patient has not recently seen a physician. 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 - Social history:: Smoking status: Patient/guardian denies using tobacco. - Ebola Screening: : Patient denies travel to an Ebola-affected area in the 21 days before illness onset. ROS: 11:39 Eyes: Negative for injury, pain, redness, and discharge, ENT: Negative for injury, jr8 pain, and discharge, Neck: Negative for injury, pain, and swelling, Abdomen/GI: Negative for abdominal pain, nausea, vomiting, diarrhea, and constipation, Back: Negative for injury and pain, MS/Extremity: Negative for injury and deformity, Skin: Negative for injury, rash, and discoloration, Neuro: Negative for headache, weakness, numbness, tingling, and seizure. 11:39 Cardiovascular: Positive for chest pain, palpitations, Negative for edema, orthopnea, paroxysmal nocturnal dyspnea. 11:39 Respiratory: Positive for shortness of breath, Negative for dyspnea on exertion, hemoptysis, orthopnea, pleurisy, sputum production, wheezing. Exam: 11:39 Eyes: Pupils equal round and reactive to light, extra-ocular motions intact. Lids and jr8 lashes normal. Conjunctiva and sclera are non-icteric and not injected. Cornea within normal limits. Periorbital areas with no swelling, redness, or edema. Neck: Trachea midline, no thyromegaly or masses palpated, and no cervical lymphadenopathy. Supple, full range of motion without nuchal rigidity, or vertebral point tenderness. No Meningismus. Chest/axilla: Normal chest wall appearance and motion. Nontender with no deformity. No lesions are appreciated. Cardiovascular: Regular rate and rhythm with a normal S1 and S2. No gallops, murmurs, or rubs. Normal PMI, no JVD. No pulse deficits. Respiratory: Lungs have equal breath sounds bilaterally, clear to auscultation and percussion. No rales, rhonchi or wheezes noted. No increased work of breathing, no retractions or nasal flaring. Abdomen/GI: Soft, non-tender, with normal bowel sounds. No distension or tympany. No guarding or rebound. No evidence of tenderness throughout. Back: No spinal tenderness. No costovertebral tenderness. Full range of motion. Skin: Warm, dry with normal turgor. Normal color with no rashes, no lesions, and no evidence of cellulitis. MS/ Extremity: Pulses equal, no cyanosis. Neurovascular intact. Full, normal range of motion. Neuro: Awake and alert, GCS 15, oriented to person, place, time, and situation. Cranial nerves II-XII grossly intact. Motor strength 5/5 in all extremities. Sensory grossly intact. Cerebellar exam normal. Normal gait. 11:52 ECG was reviewed by the Attending Physician. 8 Vital Signs: 10:57 BP 138 / 70; Pulse 71; Resp 18; Temp 97.2; Pulse Ox 98% on R/A; Weight 86.18 kg (R); aj1 Height 5 ft. 3 in. (160.02 cm) (R); Pain 6/10; 12:09 BP 114 / 78; Pulse 72; Resp 18; Pulse Ox 99% on R/A; Pain 0/10; em 10:57 Body Mass Index 33.66 (86.18 kg, 160.02 cm) aj1 MDM: 10:59 Patient medically screened. jr8 11:52 Data reviewed: vital signs, nurses notes, lab test result(s), EKG, radiologic studies, jr8 plain films. Data interpreted: Pulse oximetry: on room air is 98 %. Interpretation: normal. Test interpretation: by ED physician or midlevel provider: ECG. Counseling: I had a detailed discussion with the patient and/or guardian regarding: the historical points, exam findings, and any diagnostic results supporting the discharge/admit diagnosis, lab results, radiology results, the need for outpatient follow up, a it sales executive, a family practitioner, to return to the emergency department if symptoms worsen or persist or if there are any questions or concerns that arise at home. 07/29 11:11 Order name: CBC with Diff; Complete Time: 11:41 jr8 07/29 11:11 Order name: Basic Metabolic Panel; Complete Time: 11:51 jr8 07/29 11:11 Order name: Magnesium; Complete Time: 11:51 jr8 07/29 11:11 Order name: XRAY Chest (1 view); Complete Time: 10:44 jr8 07/29 11:29 Order name: Urine Dipstick--Ancillary (enter results); Complete Time: 10:44 gm 07/29 11:29 Order name: Urine --Ancillary (enter results); Complete Time: 10:44 gm 07/29 11:11 Order name: IV; Complete Time: 11:43 jr8 07/29 11:11 Order name: EKG - Nurse/Tech; Complete Time: 11:43 jr8 07/29 11:11 Order name: Urine Test (obtain specimen); Complete Time: 11:43 jr8 07/29 11:11 Order name: Urine Dipstick-Ancillary (obtain specimen); Complete Time: 11:43 jr8 EC:52 Rate is 72 beats/min. Rhythm is regular, Sinus Rhythm. QRS [place] is Normal. [place] interval jr8 is normal at 154 msec. QRS interval is normal at 86 msec. QT interval is normal at 422 msec. No Q waves. T waves are Normal. No ST changes noted. Clinical impression: Normal ECG, No evidence of ischemia, and occasional PVC. Interpreted by me. Reviewed by me. Administered Medications: No medications were administered Disposition: 12:39 Co-signature as Attending Physician, Trace Lyons MD. rn Disposition: 07/29/19 11:54 Discharged to Home. Impression: Palpitations, Ventricular premature depolarization. - Condition is Stable. - Discharge Instructions: Holter Monitoring, Palpitations, Premature Ventricular Contraction. - Medication Reconciliation Form, Thank You Letter, Antibiotic Education, Prescription Opioid Use form. - Follow up: Darrell Kate MD; When: 5 - 6 days; Reason: Recheck today's complaints, Continuance of care, Re-evaluation by your physician. - Problem is new. - Symptoms have improved. Signatures: Dispatcher [employer] EDYue Baez RN RN aj1 Richard Metcalf, AIRCRAFT MECHANIC AIRCRAFT MECHANIC Trace Carrero MD MD rn Roszak, Josh, PA PA jr8 Corrections: (The following items were deleted from the chart) 12:13 11:54 07/29/2019 11:54 Discharged to Home. Impression: Palpitations; Ventricular em premature depolarization. Condition is Stable. Forms are Medication Reconciliation Form, Thank You Letter, Antibiotic Education, Prescription Opioid Use. Follow up: Darrell Kate; When: 5 - 6 days; Reason: Recheck today's complaints, Continuance of care, Re-evaluation by your physician. Problem is new. Symptoms have improved. jr8
--- NOTE | 2019-07-29 12:09 | RAD REPORT ---
EXAM DESCRIPTION: Fannie Single View07/29/2019 11:58 am CLINICAL HISTORY: Chest pain COMPARISON: 2018 FINDINGS: The lungs appear clear of acute infiltrate. The heart is normal size IMPRESSION: No acute abnormalities displayed
[2019-07-29 12:22] VITALS: TEMP 97.2
[2019-07-29 12:23] VITALS: BP 114/78; O2SAT 99
[2019-07-29 14:11] LABS: Urine Blood 3+ (NEG); Urine Glucose NEGATIVE (NEG); Urine Protein NEGATIVE (NEG)
--- NOTE | 2019-07-31 09:54 | EKG ---
Test Date: 2019-07-29 Test Time: 11:36:15 Bankruptcy Assistant: SONIDO MEASUREMENT RESULTS: Intervals: Rate: 72 [place]: 154 QRSD: 86 QT: 386 QTc: 422 [place]: P: 41 [place]: 154 QRS: 30 T: 49 INTERPRETIVE STATEMENTS: Sinus rhythm with occasional premature atrial complexes Otherwise normal ECG No previous ECG available for comparison Electronically Signed On 07-31-19 09:54:25 CDT by Bart Simons
== END 2019-07-29 12:13 | disposition home or self-care (01) ==
LOC: ER 10:41
DX: I49.3 Ventricular premature depolarization (principal); R00.2 Palpitations; Z88.1 Allergy status to other antibiotic agents
CPT/HCPCS: 36415; 71045; 80048; 81003; 81025; 83735; 85025; 93005; 99285

== ENCOUNTER 2019-07-30 20:01 | Emergency (ER) | payer SELFPAY ==
[2019-07-30] MEDS ORDERED: NA CHLORIDE 0.9% 1,000 ML ONE (22:50)
[2019-07-30 22:52] LABS: Absolute Lymphocytes (CBC) 3.2 K/uL (0.7-4.9); Basophils % 0.8 % (0-1.3); Lymphocytes % 37.5 % (15.3-44.8); MPV 10.2 fL (7.6-11.3); RBC Red Blood Cell Count 4.01 M/uL (3.86-4.86)
[2019-07-30 23:04] LABS: Protime INR 1.15
[2019-07-30 23:18] LABS: ALT/SGPT 15 U/L (12-78); AST/SGOT 13 U/L (15-37); Albumin 3.8 g/dL (3.4-5.0); Alkaline Phosphatase 68 U/L (45-117); BUN Blood Urea Nitrogen 13 mg/dL (7-18); Bicarbonate 27 mmol/L (21-32); Bilirubin Direct < 0.1 mg/dL (0-0.2); Bilirubin Total 0.2 mg/dL (0.2-1.0); Glucose Level 90 mg/dL (74-106); Magnesium 2.1 mg/dL (1.8-2.4); NT PRO-BNP 36 pg/mL (<125); Potassium 3.6 mmol/L (3.5-5.1); Protein, Total 7.6 g/dL (6.4-8.2); Sodium Level 140 mmol/L (136-145); Troponin (Emerg Dept Use Only) < 0.02 ng/mL (0.0-0.045)
--- NOTE | 2019-07-30 23:30 | ER ---
Nurse's Notes [facility] Name: Kathy Gallegos Age: 23 yrs Sex: Female : 1995 Arrival Date: 07/30/2019 Time: 20:03 Bed 6 Private MD: Diagnosis: Palpitations Presentation: 07/30 20:10 Presenting complaint: Patient states: "I came in yesterday for heart palpitations, I aj1 wasn't feeling good at all. They did a whole bunch of stuff on me, they found one thing, PVCs I guess, and I feel worse today. I woke up, I've been having heat flashes. I've been having palpitations. I feel it pounding and pounding and its been constant today, and I've been feeling dizzy" Patient reports that she is currently having palpitations, heart rate is 69bpm. Patient denies pain. Transition of care: patient was not received from another setting of care. Onset of symptoms was July 30, 2019. Risk Assessment: Do you want to hurt yourself or someone else? Patient reports no desire to harm self or others. Initial Sepsis Screen: Does the patient meet any 2 criteria? No. Patient's initial sepsis screen is negative. Does the patient have a suspected source of infection? No. Patient's initial sepsis screen is negative. Care prior to arrival: None. 20:10 Method Of Arrival: Ambulatory aj1 20:10 Acuity: SPRING 3 aj1 Triage Assessment: 20:12 General: Appears in no apparent distress. uncomfortable, Behavior is calm, cooperative, aj1 appropriate for age. Pain: Denies pain. Neuro: Level of Consciousness is awake, alert, obeys commands, Oriented to person, place, time, situation. Cardiovascular: Patient's skin is warm and dry. Cardiovascular: Denies chest pain. Respiratory: Airway is patent Respiratory effort is even, unlabored, Respiratory pattern is regular, symmetrical. 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 - Social history:: Smoking status: Patient/guardian denies using tobacco. - Ebola Screening: : Patient denies travel to an Ebola-affected area in the 21 days before illness onset. Screenin:59 Abuse screen: Denies threats or abuse. Nutritional screening: No deficits noted. bb Tuberculosis screening: No symptoms or risk factors identified. Fall Risk None identified. Assessment: 21:59 General: Appears in no apparent distress. obese, Behavior is cooperative, anxious, bb Reports she was here yesterday and dx with PVC's and was told to come back if she felt worse today she has had frequent PVCs all day along with fatigue, shortness of breath, pt goggled it and is feeling anxious. Pain: Denies pain. Neuro: Level of Consciousness is awake, alert, obeys commands, Oriented to person, place, time, situation. Cardiovascular: Heart tones S1 S2 present Capillary refill < 3 seconds Patient's skin is warm and dry. Pulses are all present. Edema is absent. Respiratory: Airway is patent Respiratory effort is even, unlabored, Respiratory pattern is regular, Breath sounds are clear bilaterally. GI: No signs and/or symptoms were reported involving the gastrointestinal system. Derm: Skin is dry, Skin is pale, Skin temperature is warm. Musculoskeletal: Circulation, motion, and sensation intact. 22:30 Pain: Pain does not radiate. Pain began suddenly. bb 23:51 Reassessment: Patient is alert, oriented x 3, equal unlabored respirations, skin bb warm/dry/pink. pt verbalized understanding of and agrees to plan of care discharge instructions given pt ambulated with steady gait to exit Patient states feeling better. Vital Signs: 20:12 BP 123 / 89; Pulse 70; Resp 18; Temp 97.0(O); Pulse Ox 100% on R/A; Weight 86.18 kg [facility] (R); Height 5 ft. 3 in. (160.02 cm) (R); 21:59 BP 123 / 84; Pulse 69; Resp 18; Pulse Ox 100% on R/A; bb 23:52 BP 112 / 64; Pulse 77; Resp 20 S; Temp 97.6(O); Pulse Ox 100% on R/A; bb 20:12 Body Mass Index 33.66 (86.18 kg, 160.02 cm) [facility] ED Course: 20:03 Patient arrived in ED. ds1 20:12 Triage completed. aj1 20:12 Arm band placed on. aj1 21:58 Shamika Crawford, RN is Primary Nurse. bb 21:59 Patient has correct armband on for positive identification. Bed in low position. Call bb light in reach. Side rails up X 1. chief of planning on. Pulse ox on. NIBP on. 21:59 Patient maintains SpO2 saturation greater than 95% on room air. bb 22:22 Donn Rust MD is Attending Physician. tw4 22:41 Inserted saline lock: 20 gauge in right antecubital area, using aseptic technique. mt Blood collected. 23:53 No provider procedures requiring assistance completed. IV discontinued, intact, bb bleeding controlled, No redness/swelling at site. Pressure dressing applied. Administered Medications: 22:54 Drug: NS 0.9% 1000 ml Route: IV; Rate: 1 bolus; Site: right antecubital; bb 23:50 Follow up: IV Status: Completed infusion; IV Intake: 1000ml bb Intake: 23:50 IV: 1000ml; Total: 1000ml. bb Outcome: 23:30 Discharge ordered by . tw4 23:53 Discharged to home ambulatory. bb 23:53 Condition: stable 23:53 Discharge instructions given to patient, Instructed on discharge instructions, follow up and referral plans. Demonstrated understanding of instructions, follow-up care. 07/31 00:04 Patient left the ED. bb Signatures: Yue Monte RN RN ajLeonor Carr ds Shamika Crawford, Aleks Dominique [facility] Donn Rust MD MD tw4
--- NOTE | 2019-07-30 23:30 | EDPHYS ---
Physician Documentation [facility] Name: Kathy Gallegos Age: 23 yrs Sex: Female : 1995 Arrival Date: 07/30/2019 Time: 20:03 Bed 6 Private MD: ED Physician Donn Rust HPI: 07/30 23:13 This 23 yrs old Female presents to ER via Ambulatory with complaints of tw4 Irregular Pulse, Dizziness. 23:13 The patient presents with dizziness. Onset: The symptoms/episode began/occurred today. tw4 Context: occurred at home. Modifying factors: The symptoms are alleviated by nothing, the symptoms are aggravated by nothing. Severity of symptoms: At their worst the symptoms were moderate in the emergency department the symptoms are unchanged. The patient has not experienced similar symptoms in the past. 23:13 Associated signs and symptoms: Pertinent positives: palpitations. 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 - Social history:: Smoking status: Patient/guardian denies using tobacco. - Ebola Screening: : Patient denies travel to an Ebola-affected area in the 21 days before illness onset. ROS: 23:15 Constitutional: Negative for fever, chills, and weight loss, Eyes: Negative for injury, tw4 pain, redness, and discharge, Respiratory: Negative for shortness of breath, cough, wheezing, and pleuritic chest pain, Abdomen/GI: Negative for abdominal pain, nausea, vomiting, diarrhea, and constipation, Back: Negative for injury and pain. 23:15 MS/Extremity: Negative for injury and deformity, Skin: Negative for injury, rash, and discoloration. 23:15 Cardiovascular: Positive for palpitations, Negative for chest pain, edema, orthopnea. 23:15 Neuro: Positive for dizziness, Negative for altered mental status, gait disturbance, headache, hearing loss, speech changes, syncope, near syncope, tinnitus, tremor, visual changes. Exam: 23:15 Constitutional: This is a well developed, well nourished patient who is awake, alert, tw4 and in no acute distress. Head/Face: Normocephalic, atraumatic. Chest/axilla: Normal chest wall appearance and motion. Nontender with no deformity. No lesions are appreciated. Cardiovascular: Regular rate and rhythm with a normal S1 and S2. No gallops, murmurs, or rubs. Normal PMI, no JVD. No pulse deficits. Respiratory: Lungs have equal breath sounds bilaterally, clear to auscultation and percussion. No rales, rhonchi or wheezes noted. No increased work of breathing, no retractions or nasal flaring. Abdomen/GI: Soft, non-tender, with normal bowel sounds. No distension or tympany. No guarding or rebound. No evidence of tenderness throughout. Back: No spinal tenderness. No costovertebral tenderness. Full range of motion. MS/ Extremity: Pulses equal, no cyanosis. Neurovascular intact. Full, normal range of motion. Neuro: Awake and alert, GCS 15, oriented to person, place, time, and situation. Cranial nerves II-XII grossly intact. Motor strength 5/5 in all extremities. Sensory grossly intact. Cerebellar exam normal. Normal gait. Vital Signs: 20:12 BP 123 / 89; Pulse 70; Resp 18; Temp 97.0(O); Pulse Ox 100% on R/A; Weight 86.18 kg aj1 (R); Height 5 ft. 3 in. (160.02 cm) (R); 21:59 BP 123 / 84; Pulse 69; Resp 18; Pulse Ox 100% on R/A; bb 23:52 BP 112 / 64; Pulse 77; Resp 20 S; Temp 97.6(O); Pulse Ox 100% on R/A; bb 20:12 Body Mass Index 33.66 (86.18 kg, 160.02 cm) aj1 MDM: 22:22 Patient medically screened. tw4 23:30 Differential diagnosis: head injury, idiopathic dizziness, near-syncope, TIA, vertigo. tw4 Data reviewed: vital signs, nurses notes. Data interpreted: Pulse oximetry: Interpretation: normal. Test interpretation: by ED physician or midlevel provider: ECG. Counseling: I had a detailed discussion with the patient and/or guardian regarding: the historical points, exam findings, and any diagnostic results supporting the discharge/admit diagnosis. Special discussion: I discussed with the patient/guardian in detail that at this point there is no indication for admission to the hospital. It is understood, however, that if the symptoms persist or worsen the patient needs to return immediately for re-evaluation. 07/30 22:22 Order name: Basic Metabolic Panel; Complete Time: 23:28 tw4 07/30 23:28 Interpretation: Normal except: CA 8.3. 4 07/30 22:22 Order name: CBC with Diff; Complete Time: 23:28 tw4 07/30 23:28 Interpretation: Normal except: WBC 8.6; HGB 11.0; HCT 34.0. tw4 07/30 22:22 Order name: LFT's; Complete Time: 23:28 tw4 07/30 23:28 Interpretation: Normal except: AST 13; GLOB 3.8; A/G 1.0. tw4 07/30 22:22 Order name: Magnesium; Complete Time: 23:28 tw4 07/30 23:28 Interpretation: Within normal limits: MG 2.1. tw4 07/30 22:22 Order name: NT PRO-BNP; Complete Time: 23:28 tw4 07/30 23:28 Interpretation: Within normal limits: NT PRO-BNP 36. tw4 07/30 22:22 Order name: PT-INR; Complete Time: 23:28 tw4 07/30 23:28 Interpretation: Normal except: PT 13.5. tw4 07/30 22:22 Order name: Troponin (emerg Dept Use Only); Complete Time: 23:28 tw4 07/30 23:29 Interpretation: Within normal limits: TROPED < 0.02. 4 07/30 22:22 Order name: EKG; Complete Time: 22:23 4 07/30 22:22 Order name: Cardiac monitoring; Complete Time: 22:42 4 07/30 22:22 Order name: EKG - Nurse/Tech; Complete Time: 22:41 4 07/30 22:22 Order name: IV Saline Lock; Complete Time: 22:41 4 07/30 22:22 Order name: Labs collected and sent; Complete Time: 22:41 4 07/30 22:22 Order name: O2 Per Protocol; Complete Time: 22:41 4 07/30 22:22 Order name: O2 Sat Monitoring; Complete Time: 22:41 tw4 EC:50 Rate is 74 beats/min. Rhythm is regular, Normal Sinus Rhythm with Occasional PVCs. QRS tw4 [place] is Normal. TN interval is normal. QRS interval is normal. QT interval is normal. No Q waves. T waves are Normal. No ST changes noted. Administered Medications: 22:54 Drug: NS 0.9% 1000 ml Route: IV; Rate: 1 bolus; Site: right antecubital; bb 23:50 Follow up: IV Status: Completed infusion; IV Intake: 1000ml bb Disposition: 07/30/19 23:30 Discharged to Home. Impression: Palpitations. - Condition is Stable. - Discharge Instructions: Palpitations. - Medication Reconciliation Form, Thank You Letter, Antibiotic Education, Prescription Opioid Use form. - Follow up: Private Physician; When: Upon discharge from the Emergency Department; Reason: If symptoms return, Recheck today's complaints, Continuance of care. - Problem is new. - Symptoms have improved. Signatures: Dispatcher [employer] EDYue Baez RN RN aj1 Shamika Crawford RN RN bb Donn Rust MD MD tw4 Corrections: (The following items were deleted from the chart) 23:15 23:13 Associated signs and symptoms: The patient has no apparent associated signs or tw4 symptoms, tw4 23:29 23:29 Within normal limits. tw4 tw4 10 00:04 10 23:30 07/30/2019 23:30 Discharged to Home. Impression: Palpitations. Condition is bb Stable. Forms are Medication Reconciliation Form, Thank You Letter, Antibiotic Education, Prescription Opioid Use. Follow up: Private Physician; When: Upon discharge from the Emergency Department; Reason: If symptoms return, Recheck today's complaints, Continuance of care. Problem is new. Symptoms have improved. tw4
[2019-07-31 01:10] VITALS: O2SAT 100
[2019-07-31 01:13] VITALS: BP 112/64; TEMP 97.6
--- NOTE | 2019-07-31 09:43 | EKG ---
Test Date: 2019-07-30 Test Time: 20:22:24 Supervisor [employer]: OSWALDO MEASUREMENT RESULTS: Intervals: Rate: 74 NM: 154 QRSD: 82 QT: 402 QTc: 446 [place]: P: 42 NM: 154 QRS: 32 T: 71 INTERPRETIVE STATEMENTS: Sinus rhythm with occasional premature ventricular complexes Abnormal ECG Compared to ECG 07/30/2019 20:20:09 Ventricular premature complex(es) now present T-wave abnormality no longer present Electronically Signed On 07-31-19 09:43:24 CDT by Bart Simons
--- NOTE | 2019-07-31 09:44 | EKG ---
Test Date: 2019-07-30 Test Time: 20:20:09 Weigher Bulker: OSWALDO MEASUREMENT RESULTS: Intervals: Rate: 69 [place]: 144 QRSD: 82 QT: 404 QTc: 432 [place]: P: 42 [place]: 144 QRS: 29 T: 67 INTERPRETIVE STATEMENTS: Normal sinus rhythm Nonspecific T wave abnormality Abnormal ECG Compared to ECG 07/29/2019 11:36:15 T-wave abnormality now present Ventricular premature complex(es) no longer present Myocardial infarct finding no longer present Electronically Signed On 07-31-19 09:43:27 CDT by Bart Simons
== END 2019-07-31 00:04 | disposition home or self-care (01) ==
LOC: ER 20:01
DX: R00.2 Palpitations (principal); Z88.1 Allergy status to other antibiotic agents
CPT/HCPCS: 36415; 80048; 80076; 83735; 83880; 84484; 85025; 85610; 93005; 96360; 99285; J7030

== ENCOUNTER 2020-02-19 10:28 | Emergency (ER) | payer SELFPAY ==
--- OUTSIDE RECORDS SUMMARY | 2020-02-19 10:34 | XMS REPORT ---
:1995 Author Organization [facility] t Address [address] [place] [address] Care Team Providers Name Role Phone Unavailable Unavailable Unavailable Payers Payer Name Policy Type Policy Number Effective Date Expiration D ate Problems This patient has no known problems. Allergies, Adverse Reactions, Alerts Allergy Name Allergy Status Severity Reaction(s) Onset Inactive Treat ing Comments Type Date Date Clinician amoxicillin DA Active U 2017-11 00:00:0 0 watermelon DA Active U 2017-11 00:00:0 0 banana DA Active U 2017-11 00:00:0 0 Medications This patient has no known medications.
[2020-02-19 11:34] LABS: Absolute Lymphocytes (CBC) 1.5 K/uL (0.7-4.9); Basophils % 0.4 % (0-1.3); Hematocrit 31.7 % (36.0-45.0); Lymphocytes % 20.7 % (15.3-44.8); MPV 9.2 fL (7.6-11.3); RBC Red Blood Cell Count 4.27 M/uL (3.86-4.86)
[2020-02-19 11:54] LABS: ALT/SGPT 13 U/L (12-78); AST/SGOT 8 U/L (15-37); Albumin 3.4 g/dL (3.4-5.0); Alkaline Phosphatase 66 U/L (45-117); BUN Blood Urea Nitrogen 9 mg/dL (7-18); Bicarbonate 28 mmol/L (21-32); Bilirubin Direct < 0.1 mg/dL (0-0.2); Bilirubin Total 0.2 mg/dL (0.2-1.0); Glucose Level 91 mg/dL (74-106); Lipase 71 U/L (73-393); Potassium 3.9 mmol/L (3.5-5.1); Protein, Total 7.5 g/dL (6.4-8.2); Sodium Level 137 mmol/L (136-145)
[2020-02-19 12:38] LABS: Urine Blood TRACE (NEG); Urine Glucose NEGATIVE (NEG); Urine Protein NEGATIVE (NEG); Urine Specific Gravity 1.015 (1.005-1.030)
--- NOTE | 2020-02-19 12:48 | RAD REPORT ---
EXAM DESCRIPTION: CT - Abdomen Pelvis W Contrast - 02/19/2020 12:16 pm CLINICAL HISTORY: Abdominal pain COMPARISON: none. TECHNIQUE: Computed axial tomography of the abdomen pelvis was obtained. 100 cc Isovue-300 was admin istered intravenously. Oral contrast was not requested which limits evaluation of bowel. All CT scans are performed using dose optimization technique as appropriate and may include automated exposure control or mA/KV adjustment according to patient size. FINDINGS: The liver, spleen, pancreas, adrenal and kidneys appear unremarkable. Normal appendix The wall of the descending colon is moderately thickened. IUD in place IMPRESSION: Moderate colitis involving the descending colon
[2020-02-19] MEDS ORDERED: METRONIDAZOLE 500mg IVPB 500 MG/100 ML BAG IV ONE (13:22)
[2020-02-19] MEDS ORDERED: CIPROFLOXACIN 400mg IV 400 MG/200 ML BAG IV ONE (13:22)
--- NOTE | 2020-02-19 13:31 | ER ---
Nurse's Notes [facility] Name: Kathy Gallegos Age: 24 yrs Sex: Female : 1995 Arrival Date: 02/19/2020 Time: 10:30 Bed 13 Private MD: Diagnosis: Left sided colitis Presentation: 02/18 10:50 Chief complaint: Patient states: abd cramping and nausea that began 2-3 days ago. Pt aa5 reports pain began after eating carne asada. Pt reports rectal bleeding yesterday and diarrhea. Pt denies vomiting. Coronavirus screen: Proceed with normal triage. Patient denies a cough. Patient denies shortness of breath or difficulty breathing. Patient denies measured and/or subjective temperature greater than 100.4F prior to today's visit. Patient denies travel on a cruise ship or to a country the [facility] currently lists as an affected area. Patient denies contact with known and/or suspected case of COVID-19. Ebola Screen: Patient negative for fever greater than or equal to 101.5 degrees Fahrenheit, and additional compatible Ebola Virus Disease symptoms. Initial Sepsis Screen: Does the patient meet any 2 criteria? HR > 90 bpm. Does the patient have a suspected source of infection? No. Patient's initial sepsis screen is negative. Risk Assessment: Do you want to hurt yourself or someone else? Patient reports no desire to harm self or others. Onset of symptoms was January 2020. 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 - Social history:: Smoking status: Patient denies any tobacco usage or history of. - Family history:: not pertinent. - Hospitalizations: : No recent hospitalization is reported. Screenin:26 Abuse screen: Denies threats or abuse. Denies injuries from another. Nutritional ca1 screening: No deficits noted. Tuberculosis screening: No symptoms or risk factors identified. Fall Risk IV access (20 points). Assessment: 11:26 General: Appears in no apparent distress. comfortable, Behavior is calm, cooperative, ca1 appropriate for age. Pain: Complains of pain in suprapubic area Pain does not radiate. Pain currently is 4 out of 10 on a pain scale. Quality of pain is described as crampy, Pain began 1 day ago. Is intermittent. Neuro: Level of Consciousness is awake, alert, obeys commands, Oriented to person, place, time, situation, Appropriate for age. Cardiovascular: Heart tones S1 S2 present Capillary refill < 3 seconds Patient's skin is warm and dry. Respiratory: Airway is patent Respiratory effort is even, unlabored, Respiratory pattern is regular, symmetrical. GI: Abdomen is round non-distended, Bowel sounds present X 4 quads. Abd is soft X 4 quads Abdomen is tender to palpation in suprapubic area Reports diarrhea, bloody stool, nausea, since last night. : No signs and/or symptoms were reported regarding the genitourinary system. EENT: Derm: Skin is intact, is healthy with good turgor, Skin is pink, warm \T\ dry. Musculoskeletal: Circulation, motion, and sensation intact. Capillary refill < 3 seconds. 12:52 Reassessment: Patient appears in no apparent distress at this time. Patient and/or ca1 family updated on plan of care and expected duration. Pain level reassessed. Patient is alert, oriented x 3, equal unlabored respirations, skin warm/dry/pink. 13:36 Reassessment: Patient appears in no apparent distress at this time. Patient and/or ca1 family updated on plan of care and expected duration. Pain level reassessed. Patient is alert, oriented x 3, equal unlabored respirations, skin warm/dry/pink. IV abx infusing, to be discharged once completed. 14:12 Reassessment: Cancelled Stool Culture per provider. ca1 14:56 Reassessment: Patient appears in no apparent distress at this time. Patient is alert, ca1 oriented x 3, equal unlabored respirations, skin warm/dry/pink. Vital Signs: 10:50 BP 121 / 69; Pulse 93; Resp 16 S; Temp 99.1(O); Pulse Ox 99% on R/A; Weight 90.72 kg aa5 (R); Height 5 ft. 3 in. (160.02 cm) (R); Pain 0/10; 11:56 BP 101 / 66; Pulse 87; Resp 17 S; Pulse Ox 100% on R/A; ca1 12:52 BP 122 / 77; Pulse 82; Resp 17 S; Pulse Ox 100% on R/A; ca1 13:36 BP 108 / 74; Pulse 77; Resp 17 S; Pulse Ox 100% on R/A; ca1 14:40 BP 121 / 69; Pulse 85; Resp 17 S; Pulse Ox 100% on R/A; ca1 10:50 Body Mass Index 35.43 (90.72 kg, 160.02 cm) aa5 ED Course: 10:30 Patient arrived in ED. as 10:50 Arm band placed on. aa5 10:53 Triage completed. aa5 11:09 Trace Lyons MD is Attending Physician. rn 11:17 Argelia Marks RN is Primary Nurse. ca1 11:26 Patient has correct armband on for positive identification. Bed in low position. Call ca1 light in reach. Side rails up X 1. Pulse ox on. NIBP on. Warm blanket given. 11:26 No provider procedures requiring assistance completed. Initial lab(s) drawn, by in, ca1 sent to lab. Inserted saline lock: 20 gauge in right antecubital area, using aseptic technique. Blood collected. 11:56 Urine collected: clean catch specimen, clear. ca1 12:16 CT Abd/Pelvis - IV Contrast Only In Process Unspecified. EDMS 13:30 Mauro Paige MD is Referral Physician. rn 14:57 IV discontinued, intact, bleeding controlled, No redness/swelling at site. Pressure ca1 dressing applied. Administered Medications: 13:23 Drug: Flagyl 500 mg Volume: 100 ml; Route: IVPB; Rate: 200 ml/hr; Infused Over: 30 ca1 mins; Site: right antecubital; 14:03 Follow up: Response: No adverse reaction; IV Status: Completed infusion ca1 14:05 Drug: Cipro 400 mg Volume: 200 ml; Route: IVPB; Infused Over: 60 mins; Site: right ls4 antecubital; 14:56 Follow up: Response: No adverse reaction; IV Status: Completed infusion ca1 Outcome: 13:31 Discharge ordered by . rn 14:57 Discharged to home ambulatory. ca1 14:57 Condition: stable 14:57 Discharge instructions given to patient, Instructed on discharge instructions, follow up and referral plans. medication usage, Demonstrated understanding of instructions, follow-up care, medications, Prescriptions given X 2. 14:57 Patient left the ED. ca1 Signatures: Dispatcher [employer] EDShirin Ivan Roman, MD MD rn Tierra Page RN RN aa5 Akiko Maldonado RN RN ls4 Argelia Marks RN RN ca1 Corrections: (The following items were deleted from the chart) 11:42 11:26 GI: Abdomen is round non-distended, Bowel sounds present X 4 quads. Abd is soft X ca1 4 quads Abdomen is tender to palpation in suprapubic area Reports bloody stool, nausea, since last night ca1
--- NOTE | 2020-02-19 13:31 | EDPHYS ---
Physician Documentation [facility] Name: Kathy Gallegos Age: 24 yrs Sex: Female : 1995 Arrival Date: 02/19/2020 Time: 10:30 Bed 13 Private MD: ED Physician Trace Lyons HPI: 02/18 11:27 This 24 yrs old Female presents to ER via Ambulatory with complaints of Bloody rn Stools, Diarrhea, Abdominal Cramping. 11:27 The patient presents to the emergency department with nausea, diarrhea, abdominal pain. rn 11:27 Onset: The symptoms/episode began/occurred 3 day(s) ago. Possible causes: bad food rn exposure. The symptoms are aggravated by nothing. Associated signs and symptoms: Pertinent positives: diarrhea, GI bleeding, nausea, Pertinent negatives: fever. Severity of symptoms: At their worst the symptoms were moderate in the emergency department the symptoms have improved. The patient has not experienced similar symptoms in the past. The patient has not recently seen a physician. Reports abd cramping, nausea/diarrhea, began 3 days ago, thinks might be from eating bad meat her grilled, states smelled funny. Had some blood in stool that has now resolved. Still mild diarrhea. Symptoms improving but have not resolved so came in. No sick contacts. . 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 - Social history:: Smoking status: Patient denies any tobacco usage or history of. - Family history:: not pertinent. - Hospitalizations: : No recent hospitalization is reported. ROS: 11:27 Constitutional: Negative for fever, chills, and weight loss, Eyes: Negative for injury, rn pain, redness, and discharge, Neck: Negative for injury, pain, and swelling, Cardiovascular: Negative for chest pain, palpitations, and edema, Respiratory: Negative for shortness of breath, cough, wheezing, and pleuritic chest pain, Abdomen/GI: + abd pain/nausea/diarrhea/blood in stool : Negative for injury, bleeding, discharge, and swelling, MS/Extremity: Negative for injury and deformity, Skin: Negative for injury, rash, and discoloration, Neuro: Negative for headache, weakness, numbness, tingling, and seizure. Exam: 11:27 Constitutional: This is a well developed, well nourished patient who is awake, alert, rn and in no acute distress. ENT: MMM Cardiovascular: Regular rate and rhythm. No pulse deficits. Respiratory: No increased work of breathing, no retractions or nasal flaring. Abdomen/GI: soft, mild LLQ tenderness and suprapubic tenderness Skin: Warm, dry with normal turgor. Normal color with no rashes, no lesions, and no evidence of cellulitis. MS/ Extremity: Pulses equal, no cyanosis. Neurovascular intact. Full, normal range of motion. Equal circumference. Neuro: Awake and alert, GCS 15 Vital Signs: 10:50 BP 121 / 69; Pulse 93; Resp 16 S; Temp 99.1(O); Pulse Ox 99% on R/A; Weight 90.72 kg aa5 (R); Height 5 ft. 3 in. (160.02 cm) (R); Pain 0/10; 11:56 BP 101 / 66; Pulse 87; Resp 17 S; Pulse Ox 100% on R/A; ca1 12:52 BP 122 / 77; Pulse 82; Resp 17 S; Pulse Ox 100% on R/A; ca1 13:36 BP 108 / 74; Pulse 77; Resp 17 S; Pulse Ox 100% on R/A; ca1 14:40 BP 121 / 69; Pulse 85; Resp 17 S; Pulse Ox 100% on R/A; ca1 10:50 Body Mass Index 35.43 (90.72 kg, 160.02 cm) aa5 MDM: 11:09 Patient medically screened. rn 13:28 Differential diagnosis: viral gastroenteritis, gastroenteritis, colitis. Data reviewed: rn vital signs, nurses notes, lab test result(s), radiologic studies, CT scan, and as a result, I will discharge patient. Counseling: I had a detailed discussion with the patient and/or guardian regarding: the historical points, exam findings, and any diagnostic results supporting the discharge/admit diagnosis, lab results, radiology results, the need for outpatient follow up, to return to the emergency department if symptoms worsen or persist or if there are any questions or concerns that arise at home. Response to treatment: the patient's symptoms have markedly improved after treatment, and as a result, I will discharge patient. Special discussion: I discussed with the patient/guardian in detail that at this point there is no indication for admission to the hospital. It is understood, however, that if the symptoms persist or worsen the patient needs to return immediately for re-evaluation. Based on the history and exam findings, there is no indication for further emergent testing or inpatient evaluation. I discussed with the patient/guardian the need to see the silo tender for further evaluation of the symptoms. ED course: Pt improved, ct shows colitis, given story of possible bad food exposure possibly bacterial etiology. Will dc home with cipro/flagyl, IV abx given here, will need to f/u with GI. . 02/18 11:15 Order name: Basic Metabolic Panel; Complete Time: 12:49 rn 02/18 11:15 Order name: CBC with Diff; Complete Time: 12:49 rn 02/18 11:15 Order name: Creatinine for Radiology; Complete Time: 12:49 rn 02/18 11:15 Order name: Hepatic Function; Complete Time: 12:49 rn 02/18 11:15 Order name: Lipase; Complete Time: 12:49 rn 02/18 11:15 Order name: IV Saline Lock; Complete Time: 11:35 rn 02/18 11:15 Order name: Labs collected and sent; Complete Time: 11:35 rn 02/18 11:15 Order name: CT Abd/Pelvis - IV Contrast Only; Complete Time: 13:07 rn 02/18 11:15 Order name: Urine Test (obtain specimen); Complete Time: 11:55 rn 02/18 11:59 Order name: Urine Dipstick--Ancillary (enter results); Complete Time: 12:49 bd 02/18 11:59 Order name: Urine --Ancillary (enter results); Complete Time: 12:49 bd 02/18 11:15 Order name: Urine Dipstick-Ancillary (obtain specimen); Complete Time: 11:55 rn Administered Medications: 13:23 Drug: Flagyl 500 mg Volume: 100 ml; Route: IVPB; Rate: 200 ml/hr; Infused Over: 30 ca1 mins; Site: right antecubital; 14:03 Follow up: Response: No adverse reaction; IV Status: Completed infusion ca1 14:05 Drug: Cipro 400 mg Volume: 200 ml; Route: IVPB; Infused Over: 60 mins; Site: right ls4 antecubital; 14:56 Follow up: Response: No adverse reaction; IV Status: Completed infusion ca1 Disposition: 02/19/20 13:31 Discharged to Home. Impression: Left sided colitis. - Condition is Stable. - Discharge Instructions: Colitis. - Prescriptions for Cipro 500 mg Oral Tablet - take 1 tablet by ORAL route every 12 hours for 10 days; 20 tablet. Flagyl 500 mg Oral Tablet - take 1 tablet by ORAL route every 8 hours for 10 days; 30 tablet. - Medication Reconciliation Form, Thank You Letter, Antibiotic Education, Prescription Opioid Use form. - Work release form (02/19/20 14:59). ca1 - Family Work Release (02/19/20 15:00). ca1 - Follow up: Mauro Paige MD; When: As needed; Reason: Recheck today's complaints, Re-evaluation by your physician. - Problem is new. - Symptoms have improved. Signatures: Dispatcher [employer] EDTN Trace Lyons MD MD rn Calderon, Audri RN RN aa5 Akiko Maldonado RN RN ls4 Acelissa, Argelia RN RN ca1 Corrections: (The following items were deleted from the chart) 13:59 11:27 Stool Culture+BA.LAB.BRZ ordered. [facility] 14:57 13:31 02/19/2020 13:31 Discharged to Home. Impression: Left sided colitis. Condition is ca1 Stable. Forms are Medication Reconciliation Form, Thank You Letter, Antibiotic Education, Prescription Opioid Use. Follow up: Mauro Paige; When: As needed; Reason: Recheck today's complaints, Re-evaluation by your physician. Problem is new. Symptoms have improved. rn
[2020-02-19 15:08] VITALS: TEMP 99.1
[2020-02-19 15:09] VITALS: O2SAT 100
[2020-02-19 15:13] VITALS: BP 121/69
== END 2020-02-19 14:57 | disposition home or self-care (01) ==
LOC: ER 10:28
DX: K51.50 Left sided colitis without complications (principal); Z88.1 Allergy status to other antibiotic agents
CPT/HCPCS: 36415; 74177; 80048; 80076; 81003; 81025; 83690; 85025; 96365; 96367; 99284; J0744; Q9967

== ENCOUNTER 2020-06-09 13:04 | Emergency (ER) | payer SELFPAY ==
--- OUTSIDE RECORDS SUMMARY | 2020-06-09 13:06 | XMS REPORT | Continuity of Care Document ---
:1995 Author Organization [facility] t Address [address] [place] [address] Care Team Providers Name Role Phone Unavailable Unavailable Unavailable Payers Payer Name Policy Type Policy Number Effective Date Expiration Date S ource Problems This patient has no known problems. Allergies, Adverse Reactions, Alerts Allergy Allergy Status Severity Reaction(s) Onset Inactive Treating Comm ents Source Name Type Date Date Clinician amoxicil DA Active U 2017-0 [facility] 12[facility]07 [facility] Active U 2017[facility]0 [facility] on 12-07 [facility] 00:[facility] banana DA Active U 0 [facility] 12[facility]07 [facility] Medications This patient has no known medications. Procedures This patient has no known procedures. Results This patient has no known results.
--- NOTE | 2020-06-09 14:08 | ER ---
Nurse's Notes [facility] Name: Kathy Gallegos Age: 24 yrs Sex: Female : 1995 Arrival Date: 06/09/2020 Time: 13:08 Bed 19 Private MD: Diagnosis: Acute anal fissure Presentation: 06/09 13:23 Chief complaint: Patient states: abscess on the buttocks started a week ago. Denies sv discharge but reports odor. Coronavirus screen: Client denies travel out of the [place] in the last 14 days. At this time, the client does not indicate any symptoms associated with coronavirus-19. Ebola Screen: No symptoms or risks identified at this time. Risk Assessment: Do you want to hurt yourself or someone else? Patient reports no desire to harm self or others. Onset of symptoms was June 02, 2020. 13:23 Method Of Arrival: Ambulatory sv 13:23 Acuity: SPRING 3 sv 13:24 Initial Sepsis Screen: Does the patient meet any 2 criteria? No. Patient's initial sv sepsis screen is negative. Does the patient have a suspected source of infection? No. Patient's initial sepsis screen is negative. Historical: - Allergies: 13:24 Amoxicillin; sv - PMHx: 13:24 None; sv - PSHx: 13:24 None; sv - Immunization history:: Adult Immunizations up to date. - Social history:: Smoking status: Patient denies any tobacco usage or history of. Screenin:20 Abuse screen: Denies threats or abuse. Nutritional screening: No deficits noted. em Tuberculosis screening: No symptoms or risk factors identified. Fall Risk None identified. Assessment: 14:00 General: Appears in no apparent distress. uncomfortable, Behavior is calm, cooperative, em appropriate for age, Denies fever. Pain: Complains of pain in buttocks Pain currently is 8 out of 10 on a pain scale. Neuro: Level of Consciousness is awake, alert, obeys commands, Oriented to person, place, time, situation, Appropriate for age. Cardiovascular: Capillary refill < 3 seconds Patient's skin is warm and dry. Respiratory: Airway is patent Respiratory effort is even, unlabored, Respiratory pattern is regular, symmetrical. Derm: Skin is intact, is healthy with good turgor, Reports abscess on buttocks, denies drainage. Vital Signs: 13:24 BP 118 / 77; Pulse 87; Resp 16; Temp 98.1; Pulse Ox 100% ; Weight 83.91 kg; Height 5 sv ft. 3 in. (160.02 cm); 13:24 Body Mass Index 32.77 (83.91 kg, 160.02 cm) ED Course: 13:08 Patient arrived in ED. mr 13:23 Arm band placed on. sv 13:24 Triage completed. sv 13:30 Richard Metcalf, RN is Primary Nurse. em 13:33 Jensen Ramos NP is PHCP. pm1 13:33 Bruno Christian MD is Attending Physician. pm1 14:00 Patient has correct armband on for positive identification. Bed in low position. Call em light in reach. Side rails up X2. 14:00 No provider procedures requiring assistance completed. Patient did not have IV access em during this emergency room visit. Administered Medications: No medications were administered Outcome: 14:00 Discharged to home ambulatory. em 14:00 Condition: good 14:00 Discharge instructions given to patient, Instructed on discharge instructions, follow up and referral plans. no driving heavy equipment, Demonstrated understanding of instructions, follow-up care, medications, Prescriptions given X 2. 14:07 Discharge ordered by MD. pm1 14:40 Patient left the ED. em Signatures: Bev Maier RN RN Cinthia Coleman mr Richard Metcalf, SANDY DELGADO em Jensen Ramos NP REGIONAL REHABILITATION DIRECTOR pm1
--- NOTE | 2020-06-09 14:08 | EDPHYS ---
Physician Documentation [facility] Name: Kathy Gallegos Age: 24 yrs Sex: Female : 1995 Arrival Date: 06/09/2020 Time: 13:08 Bed 19 Private MD: ED Physician Bruno Christian HPI: 06/09 14:04 This 24 yrs old Female presents to ER via Ambulatory with complaints of anal pm1 pain. 14:04 The patient presents to the emergency department anal pain. Onset: The symptoms/episode pm1 began/occurred 7 day(s) ago, after anal sex for the first time with her . Modifying factors: the symptoms are aggravated by bowel movement. Associated signs and symptoms: Pertinent negatives: diarrhea, fever, vomiting, abdominal pain. Patient with some streaks of blood present with bowel movement and wiping. Pain present with bowel movement. Historical: - Allergies: 13:24 Amoxicillin; sv - PMHx: 13:24 None; sv - PSHx: 13:24 None; sv - Immunization history:: Adult Immunizations up to date. - Social history:: Smoking status: Patient denies any tobacco usage or history of. ROS: 14:04 Constitutional: Negative for fever, chills, and weight loss, Back: Negative for injury pm1 and pain, MS/Extremity: Negative for injury and deformity, Skin: Negative for injury, rash, and discoloration, Neuro: Negative for headache, weakness, numbness, tingling, and seizure. 14:04 Cardiovascular: Negative for chest pain, palpitations, and edema, Respiratory: Negative for shortness of breath, cough, wheezing, and pleuritic chest pain. 14:04 Abdomen/GI: Positive for anal pain with bowel movement, Negative for abdominal pain, nausea, vomiting, and diarrhea. Exam: 14:04 Abdomen/GI: Inspection: obese Palpation: abdomen is soft and non-tender, in all pm1 quadrants, Rectal exam: rectal tone normal, Stool: normal, hemorrhoid(s), are not appreciated, tenderness, Tenderness at 6 o'clock. 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 14:04 Constitutional: This is a well developed, well nourished patient who is awake, alert, pm1 and in no acute distress. Head/Face: Normocephalic, atraumatic. 14:04 Back: No spinal tenderness. No costovertebral tenderness. Full range of motion. Skin: Warm, dry with normal turgor. Normal color with no rashes, no lesions, and no evidence of cellulitis. MS/ Extremity: Pulses equal, no cyanosis. Neurovascular intact. Full, normal range of motion. 14:04 Cardiovascular: Exam negative for acute changes, Rate: normal, Rhythm: regular, Pulses: no pulse deficits are appreciated. 14:04 Respiratory: Exam negative for acute changes, respiratory distress, shortness of breath. 14:04 Neuro: Exam negative for acute changes, Orientation: is normal, Mentation: is normal, Motor: is normal, moves all fours. Vital Signs: 13:24 BP 118 / 77; Pulse 87; Resp 16; Temp 98.1; Pulse Ox 100% ; Weight 83.91 kg; Height 5 sv ft. 3 in. (160.02 cm); 13:24 Body Mass Index 32.77 (83.91 kg, 160.02 cm) sv MDM: 13:33 Patient medically screened. pm1 14:01 Data reviewed: vital signs. Data interpreted: Pulse oximetry: on room air is 100 %. pm1 Interpretation: normal. 14:04 Counseling: I had a detailed discussion with the patient and/or guardian regarding: the pm1 historical points, exam findings, and any diagnostic results supporting the discharge/admit diagnosis, the need for outpatient follow up, to return to the emergency department if symptoms worsen or persist or if there are any questions or concerns that arise at home. Administered Medications: No medications were administered Disposition: 18:21 Co-signature as Attending Physician, Bruno Christian MD. ma2 Disposition: 06/09/20 14:07 Discharged to Home. Impression: Acute anal fissure. - Condition is Stable. - Discharge Instructions: Anal Fissure, Adult. - Prescriptions for Colace 100 mg Oral Tablet - take 1 tablet by ORAL route every 12 hours; 14 tablet. Tramadol 50 mg Oral Tablet - take 1 tablet by ORAL route every 8 hours as needed; 12 tablet. - Medication Reconciliation Form, Thank You Letter, Antibiotic Education, Prescription Opioid Use form. - Follow up: Emergency Department; When: As needed; Reason: Worsening of condition. Follow up: Private Physician; When: 2 - 3 days; Reason: Recheck today's complaints, Continuance of care, Re-evaluation by your physician. - Problem is new. - Symptoms have improved. Signatures: Bev Maier, RN RN Richard Gomez RN RN [place], ABORIGINAL LIAISON OFFICER ABORIGINAL LIAISON OFFICER pm1 Bruno Christian, MD GAYTAN ma2 Corrections: (The following items were deleted from the chart) 14:40 14:07 06/09/2020 14:07 Discharged to Home. Impression: Acute anal fissure. Condition is em Stable. Forms are Medication Reconciliation Form, Thank You Letter, Antibiotic Education, Prescription Opioid Use. Follow up: Emergency Department; When: As needed; Reason: Worsening of condition. Follow up: Private Physician; When: 2 - 3 days; Reason: Recheck today's complaints, Continuance of care, Re-evaluation by your physician. Problem is new. Symptoms have improved. pm1
[2020-06-09 14:46] VITALS: BP 118/77; TEMP 98.1; O2SAT 100
== END 2020-06-09 14:40 | disposition home or self-care (01) ==
LOC: ER 13:04
DX: K60.0 Acute anal fissure (principal)
CPT/HCPCS: 99282

== ENCOUNTER 2020-06-28 20:38 | Emergency (ER) | payer SELFPAY ==
--- OUTSIDE RECORDS SUMMARY | 2020-06-28 20:40 | XMS REPORT | Continuity of Care Document ---
:1995 Author Organization [facility] t Address [address] [place] [address] Care Team Providers Name Role Phone Unavailable Unavailable Unavailable Payers Payer Name Policy Type Policy Number Effective Date Expiration Date S ource Problems This patient has no known problems. Allergies, Adverse Reactions, Alerts Allergy Allergy Status Severity Reaction(s) Onset Inactive Treating Comm ents Source Name Type Date Date Clinician amoxicil DA Active U 2017-0 [facility] 12-07 [facility] DA Active U 2017-0 [facility] on 12-07 Qasim 00:[facility] banana DA Active U 0 [facility]07 [facility] Medications This patient has no known medications. Procedures This patient has no known procedures. Results This patient has no known results.
[2020-06-28] MEDS ORDERED: GENTAMICIN 0.3% OPTH DROP 5ML ONE (21:47)
--- NOTE | 2020-06-28 22:05 | ER ---
Nurse's Notes [facility] Name: Kathy Gallegos Age: 24 yrs Sex: Female : 1995 Arrival Date: 06/28/2020 Time: 20:42 Bed 13 Private MD: Diagnosis: Conjunctivitis-bilateral;Other symptoms and signs involving the genitourinary system Presentation: 06/28 20:44 Chief complaint: Patient states: 3 days ago left eye began itching, right eye swelling, lp1 itching yesterday; States she has been having itching, burring, tearing to both eyes; unsure if it is related to allergies; denies any other symptoms. Coronavirus screen: Client denies travel out of the [place] in the last 14 days. At this time, the client does not indicate any symptoms associated with coronavirus-19. Ebola Screen: No symptoms or risks identified at this time. Mechanism of Injury: No Mechanism of Injury. The patient denies any loss of vision. Initial Sepsis Screen: Does the patient meet any 2 criteria? No. Patient's initial sepsis screen is negative. Does the patient have a suspected source of infection? No. Patient's initial sepsis screen is negative. Risk Assessment: Do you want to hurt yourself or someone else? Patient reports no desire to harm self or others. Onset of symptoms was June 28, 2020. 20:44 Method Of Arrival: Ambulatory lp1 20:44 Acuity: SPRING 4 lp1 Triage Assessment: 21:05 General: Appears in no apparent distress. Behavior is calm, cooperative, appropriate vc for age. Pain: Complains of pain in right eye Pain does not radiate. Pain currently is 3 out of 10 on a pain scale. EENT: Eyes with exudate noted from right outer canthus, outer aspect of conjuctiva of right eye, inner aspect of conjuctiva of right eye, right lower eyelid, left outer canthus, outer aspect of conjuctiva of left eye and left lower eyelid. 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 - Social history:: Smoking status: Patient denies any tobacco usage or history of. Screenin:47 Abuse screen: Denies threats or abuse. Denies injuries from another. Nutritional lp1 screening: No deficits noted. Tuberculosis screening: No symptoms or risk factors identified. Fall Risk None identified. Assessment: 21:05 General: Appears in no apparent distress. comfortable, Behavior is calm, cooperative, vc appropriate for age. Pain: Complains of pain in right eye. Neuro: Level of Consciousness is awake, alert, obeys commands, Oriented to person, place, time, situation, Appropriate for age. Cardiovascular: Capillary refill < 3 seconds Patient's skin is warm and dry. Respiratory: Airway is patent Respiratory effort is even, unlabored, Respiratory pattern is regular, symmetrical. GI: No signs and/or symptoms were reported involving the gastrointestinal system. : Reports urinary frequency. EENT: Eyes with exudate noted from right and left eyes Sclera/Cornea are reddened in outer aspect of conjuctiva of right eye, iris of right eye and inner aspect of conjuctiva of right eye. Derm: Skin is intact, is healthy with good turgor, Skin temperature is warm. Musculoskeletal: Circulation, motion, and sensation intact. Range of motion: intact in all extremities. 22:00 Reassessment: Patient and/or family updated on plan of care and expected duration. Pain vc level reassessed. Patient is alert, oriented x 3, equal unlabored respirations, skin warm/dry/pink. Patient states symptoms have not improved. Vital Signs: 20:45 BP 124 / 97; Pulse 87; Resp 18; Temp 99(TE); Pulse Ox 100% on R/A; Weight 84.82 kg (R); lp1 Height 5 ft. 3 in. (160.02 cm); 20:45 Body Mass Index 33.13 (84.82 kg, 160.02 cm) lp1 Visual Acuity: 21:24 Left Eye Visual acuity 20/20, ; Right Eye Visual acuity 20/13, ; Both Eyes Visual vc acuity 20/20; With Lenses; ED Course: 20:42 Patient arrived in ED. bp1 20:46 Triage completed. lp1 20:46 Arm band placed on. lp1 21:03 Milagros Alarcon RN is Primary Nurse. vc 21:05 Patient has correct armband on for positive identification. Bed in low position. Call vc light in reach. 21:09 [facility] cp 21:09 Donn Rust MD is Attending Physician. cp 22:14 No provider procedures requiring assistance completed. Patient did not have IV access vc during this emergency room visit. Administered Medications: 21:41 Drug: Gentamicin Drops 0.3 % 2 drops Route: Ophthalmic; Site: right eye; vc 21:45 Follow up: Response: No adverse reaction vc Outcome: 21:36 Discharge ordered by MD. cp 22:14 Patient left the ED. vc 22:14 Discharged to home ambulatory. vc 22:14 Condition: good 22:14 Discharge instructions given to patient, Instructed on discharge instructions, follow up and referral plans. medication usage, Demonstrated understanding of instructions, follow-up care, medications, Prescriptions given X 2. Signatures: Damaris Lazaro RN RN lp1 Terell Ray PA PA cp Calcote, Vanessa, RN RN vc Nkechi Santana [facility]
--- NOTE | 2020-06-28 22:05 | EDPHYS ---
Physician Documentation [facility] Name: Kathy Gallegos Age: 24 yrs Sex: Female : 1995 Arrival Date: 06/28/2020 Time: 20:42 Bed 13 Private MD: ED Physician Donn Rust HPI: 06/28 21:25 This 24 yrs old Female presents to ER via Ambulatory with complaints of Eye cp Pain, Eye Problem. 21:25 The patient is experiencing burning, matting or discharge, redness, itching, to both cp eyes, caused by an unknown mechanism, Patient reports wearing of contact lenses 3 weeks ago. Patient wears glasses, wears soft contacts. 21:25 Onset: The symptoms/episode began/occurred 3 day(s) ago. cp 21:25 Patient also reports urinary frequency and intermittent flank pain. 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 - Social history:: Smoking status: Patient denies any tobacco usage or history of. ROS: 21:30 Constitutional: Negative for body aches, chills, fever, poor PO intake. cp 21:30 ENT: Negative for ear pain, sore throat. cp 21:30 Eyes: Positive for discharge, itching, redness, swelling, of the right eye and left cp eye, burning, Negative for visual disturbance. 21:30 Respiratory: Negative for cough, shortness of breath, wheezing. 21:30 : Positive for urinary frequency. 21:30 Skin: Negative for rash. 21:30 All other systems are negative. Exam: 21:32 Head/Face: Normocephalic, atraumatic. cp 21:32 Constitutional: The patient appears in no acute distress, alert, awake, non-toxic, well developed, well nourished. 21:32 Eyes: Periorbital structures: appear normal, Pupils: equal, round, and reactive to light and accomodation, Extraocular movements: intact throughout, Conjunctiva: chemosis, bilaterally, worse right eye, exudate, in the right eye, injected, bilaterally, Lids and lashes: appear normal, bilaterally. 21:32 ENT: External ear(s): are unremarkable, Nose: is normal, Posterior pharynx: Airway: no evidence of obstruction, patent. 21:32 Chest/axilla: Inspection: normal. 21:32 Cardiovascular: Rate: normal. 21:32 Respiratory: the patient does not display signs of respiratory distress, Respirations: normal. 21:32 Abdomen/GI: Exam negative for discomfort, distension, guarding, Inspection: abdomen appears normal. 21:32 Back: CVA tenderness, is absent. 21:32 Skin: no rash present. cp Vital Signs: 20:45 BP 124 / 97; Pulse 87; Resp 18; Temp 99(TE); Pulse Ox 100% on R/A; Weight 84.82 kg (R); lp1 Height 5 ft. 3 in. (160.02 cm); 20:45 Body Mass Index 33.13 (84.82 kg, 160.02 cm) lp1 Visual Acuity: 21:24 Left Eye Visual acuity 20/20, ; Right Eye Visual acuity 20/13, ; Both Eyes Visual vc acuity 20/20; With Lenses; MDM: 21:14 Patient medically screened. cp 21:35 Differential diagnosis: Corneal abrasion of both eyes. Foreign body in both eyes. cp Allergic conjunctivitis in both eyes. Infectious conjunctivitis in both eyes. 21:35 Data reviewed: vital signs, nurses notes, and as a result, I will discharge patient. cp Counseling: I had a detailed discussion with the patient and/or guardian regarding: the historical points, exam findings, and any diagnostic results supporting the discharge/admit diagnosis, to return to the emergency department if symptoms worsen or persist or if there are any questions or concerns that arise at home. 06/28 21:38 Order name: Urine Dipstick--Ancillary (enter results) tt3 06/28 21:38 Order name: Urine --Ancillary (enter results) tt3 06/28 21:16 Order name: Urine Dipstick-Ancillary (obtain specimen); Complete Time: 21:32 cp 06/28 21:16 Order name: Urine Test (obtain specimen); Complete Time: 21:32 cp 06/28 21:16 Order name: Visual Acuity; Complete Time: 21:31 cp Administered Medications: 21:41 Drug: Gentamicin Drops 0.3 % 2 drops Route: Ophthalmic; Site: right eye; vc 21:45 Follow up: Response: No adverse reaction vc Disposition: 21:45 Chart complete. 06/29 05:08 Co-signature as Attending Physician, Donn Rust MD I agree with the assessment and tw4 plan of care. Disposition: 06/28/20 21:36 Discharged to Home. Impression: Conjunctivitis - bilateral, Other symptoms and signs involving the genitourinary system. - Condition is Stable. - Discharge Instructions: Bacterial Conjunctivitis. - Prescriptions for Gentamicin 0.3 % Ophthalmic Drops - instill 1 drop by OPHTHALMIC route every 4 hours for 7 days instill drops as directed in each eye. No use of contact lenses while administering eye drops; 1 bottle. Bactrim DS 800- 160 mg Oral Tablet - take 1 tablet by ORAL route every 12 hours for 5 days; 10 tablet. - Medication Reconciliation Form, Thank You Letter, Antibiotic Education, Prescription Opioid Use form. - Follow up: Private Physician; When: 1 - 2 days; Reason: Worsening of condition. - Problem is new. - Symptoms are unchanged. Signatures: Dispatcher [employer] EDDamaris Werner RN RN lp1 Terell Ray PA PA Donn Rust MD MD tw4 Milagros Alarcon RN RN vc Corrections: (The following items were deleted from the chart) 06/28 22:14 21:36 06/28/2020 21:36 Discharged to Home. Impression: Conjunctivitis - bilateral; vc Other symptoms and signs involving the genitourinary system. Condition is Stable. Forms are Medication Reconciliation Form, Thank You Letter, Antibiotic Education, Prescription Opioid Use. Follow up: Private Physician; When: 1 - 2 days; Reason: Worsening of condition. Problem is new. Symptoms are unchanged. cp 06/29 04:20 06/28 21:40 Differential diagnosis: Corneal abrasion of both eyes. Foreign body in both cp eyes. Allergic conjunctivitis in both eyes. Infectious conjunctivitis in both eyes. cp
[2020-06-28 22:32] LABS: Urine Blood 2+ (NEG); Urine Glucose NEGATIVE (NEG); Urine Protein NEGATIVE (NEG); Urine Specific Gravity 1.015 (1.005-1.030); Urine pH 6.5 (5.0-7.0)
[2020-06-30 05:25] VITALS: BP 124/97; TEMP 99; O2SAT 100
== END 2020-06-28 22:14 | disposition home or self-care (01) ==
LOC: ER 20:38
DX: H10.9 Unspecified conjunctivitis (principal); R39.89 Other symptoms and signs involving the genitourinary system; Z88.1 Allergy status to other antibiotic agents
CPT/HCPCS: 81003; 81025; 99283

== ENCOUNTER 2020-07-08 18:53 | Emergency (ER) | payer SELFPAY ==
--- OUTSIDE RECORDS SUMMARY | 2020-07-08 18:56 | XMS REPORT | Continuity of Care Document ---
:1995 Author Organization [facility] t Address [address] [place] [address] Care Team Providers Name Role Phone Unavailable Unavailable Unavailable Payers Payer Name Policy Type Policy Number Effective Date Expiration Date S ource Problems This patient has no known problems. Allergies, Adverse Reactions, Alerts Allergy Allergy Status Severity Reaction(s) Onset Inactive Treating Comm ents Source Name Type Date Date Clinician amoxicil DA Active U 2017-0 [facility] Active U 2017[facility]0 [facility] on 12-07 [facility] banana DA Active U 0 [facility] Medications This patient has no known medications. Procedures This patient has no known procedures. Results This patient has no known results.
--- NOTE | 2020-07-08 19:55 | RAD REPORT ---
EXAM DESCRIPTION: RAD - Chest Single View - 07/08/2020 7:48 pm CLINICAL HISTORY: CHEST PAIN Chest pain. COMPARISON: Chest Single View dated 07/29/2019; Chest Pa And Lat (2 Views) dated 04/22/2018 FINDINGS: Portable technique limits examination quality. The lungs are grossly clear. The heart is normal in size. No displaced fractures. IMPRESSION: No acute intrathoracic process suspected.
[2020-07-08 20:03] LABS: Absolute Lymphocytes (CBC) 2.1 K/uL (0.7-4.9); Hematocrit 29.4 % (36.0-45.0); Lymphocytes % 33.5 % (15.3-44.8)
[2020-07-08 20:04] LABS: Protime INR 1.2
[2020-07-08 20:09] LABS: Barbiturates NEGATIVE (NEGATIVE); Benzodiazepines NEGATIVE (NEGATIVE); Cocaine NEGATIVE (NEGATIVE); METHAMPHETAM NEGATIVE (NEGATIVE); Methadone NEGATIVE (NEGATIVE); Opiates NEGATIVE (NEGATIVE); Phencyclidine NEGATIVE (NEGATIVE); THC Cannibis NEGATIVE (NEGATIVE)
[2020-07-08] MEDS ORDERED: ACETAMINOPHEN 500 MG TAB ONE (20:12)
[2020-07-08] MEDS ORDERED: NA CHLORIDE 0.9% 1,000 ML ONE (20:12)
[2020-07-08 20:23] LABS: ALT/SGPT 13 U/L (12-78); AST/SGOT 7 U/L (15-37); Albumin 3.6 g/dL (3.4-5.0); Alkaline Phosphatase 66 U/L (45-117); BUN Blood Urea Nitrogen 10 mg/dL (7-18); Bicarbonate 28 mmol/L (21-32); Bilirubin Direct < 0.1 mg/dL (0-0.2); Bilirubin Total 0.2 mg/dL (0.2-1.0); Glucose Level 98 mg/dL (74-106); Magnesium 1.9 mg/dL (1.8-2.4); NT PRO-BNP 19 pg/mL (<125); Phosphorus 4.1 mg/dL (2.5-4.9); Potassium 3.6 mmol/L (3.5-5.1); Protein, Total 7.7 g/dL (6.4-8.2); Sodium Level 140 mmol/L (136-145); Troponin (Emerg Dept Use Only) < 0.02 ng/mL (0.0-0.045)
--- NOTE | 2020-07-08 21:27 | RAD REPORT ---
EXAM DESCRIPTION: CT - Head Brain Wo Cont - 07/08/2020 9:12 pm CLINICAL HISTORY: DIZZINESS Headache, drowsiness COMPARISON: No comparisons TECHNIQUE: All CT scans are performed using dose optimization technique as appropriate and may inclu de automated exposure control or mA/KV adjustment according to patient size. FINDINGS: No intracranial hemorrhage, hydrocephalus or extra-axial fluid collection.No areas of brai n edema or evidence of midline shift. The paranasal sinuses and mastoids are clear. The calvarium is intact. IMPRESSION: No acute intracranial abnormality.
--- NOTE | 2020-07-08 21:29 | RAD REPORT ---
EXAM DESCRIPTION: CT - Chest For Pe Angio - 07/08/2020 9:12 pm CLINICAL HISTORY: Chest pain. CHEST PAIN COMPARISON: Thorax W/ Con dated 04/22/2018; Abdomen Pelvis W Contrast dated 07/08/2020 TECHNIQUE: CT angiogram of the pulmonary arteries was performed with MIP. All CT scans are performed using dose optimization technique as appropriate and may include automated exposure control or mA/KV adjustment according to patient size. FINDINGS: No evidence of pulmonary thromboembolism. No acute aortic finding demonstrated. The lungs are clear. No significant pericardial or pleural fluid. No concerning bony finding. Small hiatal hernia is present. IMPRESSION: No evidence of pulmonary thromboembolism. No acute lung findings.
--- NOTE | 2020-07-08 21:30 | RAD REPORT ---
EXAM DESCRIPTION: CTAbdomen Pelvis W Contrast - 07/08/2020 9:12 pm CLINICAL HISTORY: Abdominal pain. ABD PAIN COMPARISON: Abdomen Pelvis W Contrast dated 02/19/2020 TECHNIQUE: Biphasic CT imaging of the abdomen and pelvis was performed with 100 ml non-ionic IV cont rast. All CT scans are performed using dose optimization technique as appropriate and may include automated exposure control or mA/KV adjustment according to patient size. FINDINGS: The lung bases are clear.Small hiatal hernia. The liver, spleen, pancreas, adrenal glands and kidneys are within normal limits. No bowel obstruction, free air, free fluid or abscess. Prominent fecal retention noted. The appendix is normal. No evidence of significant lymphadenopathy. No suspicious bony findings. IUD noted. IMPRESSION: No acute intra-abdominal or pelvic finding.
[2020-07-08 22:21] LABS: Urine Blood TRACE (NEG); Urine Glucose NEGATIVE (NEG); Urine Protein NEGATIVE (NEG); Urine Specific Gravity 1.015 (1.005-1.030)
[2020-07-08 22:24] LABS: Urine Culture Reflex Order NOT NEEDED
[2020-07-08 22:25] LABS: Urine Bacteria <20 /HPF (<20); Urine RBC <5 /HPF (NONE SEEN)
[2020-07-08] MEDS ORDERED: CIPROFLOXACIN HCL 500 MG TAB ONE (22:37)
--- NOTE | 2020-07-08 22:42 | ER ---
Nurse's Notes [facility] Name: Kathy Gallegos Age: 24 yrs Sex: Female : 1995 Arrival Date: 07/08/2020 Time: 18:55 Bed 17 Private MD: Diagnosis: Chest pain, unspecified;Musculoskeletal Pain;UTI Presentation: 07/08 19:03 Chief complaint: Patient states: Chest pain for 3 days, radiates to the back, neck and ca1 down my spine and down my left leg. Gets bad with walking. Reports SOB and dizziness with CP. Coronavirus screen: Client denies travel out of the [place] in the last 14 days. At this time, the client does not indicate any symptoms associated with coronavirus-19. Ebola Screen: Patient negative for fever greater than or equal to 101.5 degrees Fahrenheit, and additional compatible Ebola Virus Disease symptoms Patient denies exposure to infectious person. Patient denies travel to an Ebola-affected area in the 21 days before illness onset. No symptoms or risks identified at this time. Initial Sepsis Screen: Does the patient meet any 2 criteria? No. Patient's initial sepsis screen is negative. Does the patient have a suspected source of infection? No. Patient's initial sepsis screen is negative. Risk Assessment: Do you want to hurt yourself or someone else? Patient reports no desire to harm self or others. Onset of symptoms was July 08, 2020. 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 - Social history:: Smoking status: Patient/guardian denies using tobacco, the patient reports quitting approximately 2 years ago. Screenin:10 Abuse screen: Denies threats or abuse. Denies injuries from another. Nutritional rv screening: No deficits noted. Tuberculosis screening: No symptoms or risk factors identified. Fall Risk None identified. Assessment: 20:09 General: Appears comfortable, Behavior is calm, cooperative. Pain: Complains of pain in rv chest Pain does not radiate. Pain began suddenly. Neuro: Level of Consciousness is awake, alert, obeys commands, Oriented to person, place, time, situation. Cardiovascular: Patient's skin is warm and dry. Respiratory: Airway is patent Respiratory effort is even, unlabored, Breath sounds are clear bilaterally. Derm: Skin is intact. 21:53 Reassessment: No changes from previously documented assessment. patient is still rv complaining of back and neck pain. Patient states symptoms have not improved. Neuro: Level of Consciousness is awake, alert, obeys commands, Oriented to person, place, time, situation, Moves all extremities. Full function. Cardiovascular: Rhythm is sinus rhythm. Respiratory: Airway is patent Respiratory effort is even, unlabored, Breath sounds are clear bilaterally. 22:52 Reassessment: DR HARLEY EXPLAINED THE TEST RESULTS TO THE PATIENT. PATIENT VERBALIZED rv UNDERSTANDING. Vital Signs: 19:03 BP 114 / 73; Pulse 95; Resp 16 S; Temp 97(TE); Pulse Ox 99% on R/A; Weight 85.73 kg ca1 (R); Height 5 ft. 3 in. (160.02 cm) (R); Pain 8/10; 20:58 BP 102 / 72; Pulse 86; Resp 22; Pulse Ox 100% on R/A; rv 21:35 BP 106 / 64; Pulse 83; Resp 17; Pulse Ox 99% on R/A; rv 22:51 BP 108 / 70; Pulse 81; Resp 16; Temp 97.5; Pulse Ox 99% on R/A; rv 19:03 Body Mass Index 33.48 (85.73 kg, 160.02 cm) ca1 ED Course: 18:55 Patient arrived in ED. ag5 19:05 Triage completed. ca1 19:06 Jayy Harley MD is Attending Physician. mh7 19:48 XRAY Chest (1 view) In Process Unspecified. EDMS 19:50 Inserted saline lock: 20 gauge in right antecubital area, using aseptic technique. rv Blood collected. 19:50 Initial lab(s) drawn, by me, sent to lab. EKG done, by ED staff, reviewed by Jayy Harley MD. Patient maintains SpO2 saturation greater than 95% on room air. 19:58 Ish Valdes, SANDY is Primary Nurse. rv 20:10 Patient has correct armband on for positive identification. teletypesetter monitor on. Pulse rv ox on. NIBP on. 20:10 Arm band placed on right wrist. Patient placed in the treatment room, on a stretcher, rv Patient notified of wait time. 21:12 CT Chest For PE Angio In Process Unspecified. EDMS 21:12 CT Abd/Pelvis - IV Contrast Only In Process Unspecified. EDMS 21:12 CT Head Brain wo Cont In Process Unspecified. EDMS 22:52 No provider procedures requiring assistance completed. IV discontinued, intact, rv bleeding controlled, No redness/swelling at site. Pressure dressing applied. Administered Medications: 20:08 Drug: Tylenol 1000 mg Route: PO; rv 20:58 Follow up: Response: No adverse reaction rv 20:08 Drug: NS 0.9% 1000 ml Route: IV; Rate: 1000 ml; Site: right antecubital; rv 20:57 Follow up: IV Status: Completed infusion; IV Intake: 1000ml rv 22:30 Drug: Cipro 500 mg Route: PO; rv 22:52 Follow up: Response: Medication administered at discharge. rv Intake: 20:57 IV: 1000ml; Total: 1000ml. rv Outcome: 22:41 Discharge ordered by MD. moody 22:52 Discharged to home ambulatory. rv 22:52 Condition: good 22:52 Discharge instructions given to patient, Instructed on discharge instructions, follow up and referral plans. medication usage, Demonstrated understanding of instructions, follow-up care, medications, Prescriptions given X 1. 22:53 Patient left the ED. rv Signatures: Dispatcher [employer] EDUT Ish Valdes RN RN rv Acob, Cheryl, RN RN [facility] Demarcus Mane 5 Jayy Harley MD MD 7
--- NOTE | 2020-07-08 22:42 | EDPHYS ---
Physician Documentation [facility] Name: Kathy Gallegos Age: 24 yrs Sex: Female : 1995 Arrival Date: 07/08/2020 Time: 18:55 Bed 17 Private MD: ED Physician Jayy Harley HPI: 07/08 19:52 This 24 yrs old Female presents to ER via Ambulatory with complaints of Chest mh7 Pain, Back Pain, Leg Pain, Rash. 19:52 The patient or guardian reports chest pain that is located primarily in the anterior mh7 chest wall, bilaterally. The pain radiates to back. Associated signs and symptoms: Pertinent positives: abdominal pain, dizziness, lower extremity pain, lightheadedness, shortness of breath, Pertinent negatives: cough, diaphoresis, headache, lower extremity swelling, nausea, near syncope, palpitations, recent travel, syncope, vomiting. The chest pain is described as sharp. Duration: The patient or guardian reports multiple episodes, that are intermittent, that wax and wane, with no pattern. Modifying factors: The symptoms are alleviated by nothing. the symptoms are aggravated by movement. Severity of pain: At its worst the pain was moderate yesterday, in the emergency department the pain has improved moderately. Patient reports intermittent sharp right upper chest pain that radiates to left upper chest and her back for 4 days. She has also had some SOB, dizziness and pain that radiates from her anterior leg to her abdomen. She states that she had an itchy rash this morning over arms and abdomen that has since resolved. She denies any fever, nausea, vomiting, diarrhea, cough, numbness/tingling, or weakness.. 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 - Social history:: Smoking status: Patient/guardian denies using tobacco, the patient reports quitting approximately 2 years ago. ROS: 19:52 Constitutional: Negative for fever, chills, and weight loss, Eyes: Negative for injury, mh7 pain, redness, and discharge, ENT: Negative for injury, pain, and discharge, Neck: Negative for injury, pain, and swelling, : Negative for injury, bleeding, discharge, and swelling, Psych: Negative for depression, anxiety, suicide ideation, homicidal ideation, and hallucinations, Allergy/Immunology: Negative for hives, rash, and allergies, Endocrine: Negative for neck swelling, polydipsia, polyuria, polyphagia, and marked weight changes, Hematologic/Lymphatic: Negative for swollen nodes, abnormal bleeding, and unusual bruising. Exam: 19:52 Constitutional: This is a well developed, well nourished patient who is awake, alert, mh7 and in no acute distress. Head/Face: Normocephalic, atraumatic. Eyes: Pupils equal round and reactive to light, extra-ocular motions intact. Lids and lashes normal. Conjunctiva and sclera are non-icteric and not injected. Cornea within normal limits. Periorbital areas with no swelling, redness, or edema. Neck: Trachea midline, no thyromegaly or masses palpated, and no cervical lymphadenopathy. Supple, full range of motion without nuchal rigidity, or vertebral point tenderness. No Meningismus. 19:52 Cardiovascular: Regular rate and rhythm with a normal S1 and S2. No gallops, murmurs, or rubs. Normal PMI, no JVD. No pulse deficits. Respiratory: Lungs have equal breath sounds bilaterally, clear to auscultation and percussion. No rales, rhonchi or wheezes noted. No increased work of breathing, no retractions or nasal flaring. 19:52 Back: No spinal tenderness. No costovertebral tenderness. Full range of motion. Skin: Warm, dry with normal turgor. Normal color with no rashes, no lesions, and no evidence of cellulitis. MS/ Extremity: Pulses equal, no cyanosis. Neurovascular intact. Full, normal range of motion. Neuro: Awake and alert, GCS 15, oriented to person, place, time, and situation. Cranial nerves II-XII grossly intact. Motor strength 5/5 in all extremities. Sensory grossly intact. Cerebellar exam normal. Normal gait. Psych: Awake, alert, with orientation to person, place and time. Behavior, mood, and affect are within normal limits. 19:52 Chest/axilla: Inspection: normal, Palpation: tenderness, that is mild, of the anterior aspect of left upper chest, that partially reproduces the patient's complaints, Axilla: are normal, Lymph nodes: lymphadenopathy is not appreciated. 19:52 Abdomen/GI: Inspection: abdomen appears normal, obese Bowel sounds: normal, in all quadrants, Palpation: mild abdominal tenderness, in the epigastric area, Rectal exam: the exam is deferred, because of patient request, Indicators: McBurney's point is not tender, Rae's sign is negative, Rovsing's sign is negative, Obturator sign is negative, Psoas sign is negative, Liver: no appreciated palpable abnormalities, Hernia: not appreciated. 20:58 ECG was reviewed by the Attending Physician. [facility] Vital Signs: 19:03 BP 114 / 73; Pulse 95; Resp 16 S; Temp 97(TE); Pulse Ox 99% on R/A; Weight 85.73 kg ca1 (R); Height 5 ft. 3 in. (160.02 cm) (R); Pain 8/10; 20:58 BP 102 / 72; Pulse 86; Resp 22; Pulse Ox 100% on R/A; rv 21:35 BP 106 / 64; Pulse 83; Resp 17; Pulse Ox 99% on R/A; rv 22:51 BP 108 / 70; Pulse 81; Resp 16; Temp 97.5; Pulse Ox 99% on R/A; rv 19:03 Body Mass Index 33.48 (85.73 kg, 160.02 cm) ca1 MDM: 19:35 Patient medically screened. [facility] 22:39 Differential diagnosis: acute myocardial infarction, acute pericarditis, anxiety, chest 7 wall pain, costochondritis, esophagitis, gastritis, gastroesophageal reflux disease (GERD), pancreatitis, peptic ulcer disease, pericarditis, pleurisy, pneumonia, pneumothorax, pulmonary embolus. HEART Score: History: Slightly Suspicious (0), ECG: Normal (0), Age: < or = 45 years (0), Risk Factors: No Risk Factors Known (0), Troponin: < or = 1 x Normal Limit (0), Total Score = 0. Data reviewed: vital signs, nurses notes, old medical records, lab test result(s), cardiac enzymes, CBC, electrolytes, urinalysis, urine drug screen, EKG, radiologic studies, CT scan, plain films. Data interpreted: Pulse oximetry: on room air is 99 %. Interpretation: normal. Counseling: I had a detailed discussion with the patient and/or guardian regarding: the historical points, exam findings, and any diagnostic results supporting the discharge/admit diagnosis, lab results, radiology results, the need for outpatient follow up, to return to the emergency department if symptoms worsen or persist or if there are any questions or concerns that arise at home. Response to treatment: the patient's symptoms have resolved after treatment, the patient's blood pressure is in an acceptable range, mental status has returned to baseline, the patient no longer shows bradycardia, the patient is not short of breath, the patient is not tachycardic, the patient's pain is gone, the patient's temperature has normalized. 07/08 19:36 Order name: Basic Metabolic Panel; Complete Time: 20:43 [facility] 07/08 19:36 Order name: CBC with Diff; Complete Time: 20:43 [facility] 07/08 19:36 Order name: LFT's; Complete Time: 20:43 [facility] 07/08 19:36 Order name: Magnesium; Complete Time: 20:43 [facility] 07/08 19:36 Order name: NT PRO-BNP; Complete Time: 20:43 [facility] 07/08 19:36 Order name: PT-INR; Complete Time: 20:43 [facility] 07/08 19:36 Order name: Troponin (emerg Dept Use Only); Complete Time: 20:43 [facility] 07/08 19:36 Order name: Phosphorus; Complete Time: 20:44 [facility] 07/08 19:36 Order name: UDS; Complete Time: 20:44 [facility] 07/08 19:59 Order name: Urine Dipstick--Ancillary (enter results); Complete Time: 22:21 [facility] 07/08 19:59 Order name: Urine --Ancillary (enter results); Complete Time: 22:21 [facility] 07/08 19:59 Order name: Urine Microscopic Only; Complete Time: 22:33 rv 07/08 19:59 Order name: Urine Culture rv 07/08 20:02 Order name: Lipase; Complete Time: 20:43 [facility] 07/08 19:36 Order name: XRAY Chest (1 view); Complete Time: 20:44 [facility] 07/08 19:36 Order name: EKG; Complete Time: 19:36 [facility] 07/08 19:36 Order name: Cardiac monitoring; Complete Time: 19:58 07/08 19:36 Order name: EKG - Nurse/Tech; Complete Time: 20:08 07/08 19:36 Order name: IV Saline Lock; Complete Time: :58 07/08 19:36 Order name: Labs collected and sent; Complete Time: 20:08 07/08 19:36 Order name: O2 Per Protocol; Complete Time: 20:08 07/08 19:36 Order name: O2 Sat Monitoring; Complete Time: 20:08 07/08 19:36 Order name: Urine Dipstick-Ancillary (obtain specimen); Complete Time: :58 07/08 19:36 Order name: Urine Test (obtain specimen); Complete Time: :58 07/08 20:45 Order name: CT Chest For PE Angio; Complete Time: 22:21 07/08 20:45 Order name: CT Abd/Pelvis - IV Contrast Only; Complete Time: 22:21 [facility] 07/08 20:45 Order name: CT Head Brain wo Cont; Complete Time: 22:21 mh7 EC:58 Rate is 79 beats/min. Rhythm is regular, Normal Sinus Rhythm. QRS [place] is Normal. DC mh7 interval is normal. QRS interval is normal. QT interval is normal. No Q waves. T waves are Normal. No ST changes noted. Clinical impression: Normal ECG. Administered Medications: 20:08 Drug: Tylenol 1000 mg Route: PO; rv 20:58 Follow up: Response: No adverse reaction rv 20:08 Drug: NS 0.9% 1000 ml Route: IV; Rate: 1000 ml; Site: right antecubital; rv 20:57 Follow up: IV Status: Completed infusion; IV Intake: 1000ml rv 22:30 Drug: Cipro 500 mg Route: PO; rv 22:52 Follow up: Response: Medication administered at discharge. rv Disposition: 07/08/20 22:41 Discharged to Home. Impression: Chest pain, unspecified, Musculoskeletal Pain, UTI. - Condition is Stable. - Discharge Instructions: Musculoskeletal Pain, Urinary Tract Infection, Adult, [id number], Nonspecific Chest Pain, [id number]. - Prescriptions for Cipro 500 mg Oral Tablet - take 1 tablet by ORAL route every 12 hours for 7 days; 14 tablet. - Medication Reconciliation Form, Thank You Letter, Antibiotic Education, Prescription Opioid Use form. - Follow up: Private Physician; When: 1 - 2 days; Reason: Worsening of condition, Recheck today's complaints, Continuance of care, Re-evaluation by your physician. - Problem is new. - Symptoms have improved. Signatures: Dispatcher [employer] EDMS Ish Valdes RN RN rv AcArgelia bowers RN RN ca1 Jayy Harley MD MD mh7 Corrections: (The following items were deleted from the chart) 22:53 22:41 07/08/2020 22:41 Discharged to Home. Impression: Chest pain, unspecified; rv Musculoskeletal Pain; UTI. Condition is Stable. Forms are Medication Reconciliation Form, Thank You Letter, Antibiotic Education, Prescription Opioid Use. Follow up: Private Physician; When: 1 - 2 days; Reason: Worsening of condition, Recheck today's complaints, Continuance of care, Re-evaluation by your physician. Problem is new. Symptoms have improved. mh7
[2020-07-09 01:40] VITALS: O2SAT 99
[2020-07-09 01:41] VITALS: BP 108/70; TEMP 97.5
--- NOTE | 2020-07-10 05:54 | EKG ---
Test Date: 2020-07-08 Test Time: 20:11:54 Negative Spotter: NIDHI MEASUREMENT RESULTS: Intervals: Rate: 79 MO: 174 QRSD: 88 QT: 368 QTc: 421 Dwight: P: 39 MO: 174 QRS: 33 T: 56 INTERPRETIVE STATEMENTS: Normal sinus rhythm with sinus arrhythmia Normal ECG Compared to ECG 07/30/2019 20:22:24 Ventricular premature complex(es) no longer present Electronically Signed On 07-10-20 05:50:29 CDT by Darrell Kate
== END 2020-07-08 22:53 | disposition home or self-care (01) ==
LOC: ER 18:53
DX: M79.18 Myalgia, other site (principal); N39.0 Urinary tract infection, site not specified; Z88.1 Allergy status to other antibiotic agents
CPT/HCPCS: 36415; 70450; 71045; 71275; 74177; 80048; 80076; 80307; 81003; 81015; 81025; 83690; 83735; 83880; 84100; 84484; 85025; 85610; 87086; 87088; 93005; 96360; 99285; J7030; Q9967

== ENCOUNTER 2020-08-31 15:33 | Emergency (ER) | payer SELFPAY ==
--- OUTSIDE RECORDS SUMMARY | 2020-08-31 15:35 | XMS REPORT | Continuity of Care Document ---
:1995 Author Organization [facility] t Address [address] [place] [address] Care Team Providers Name Role Phone Unavailable Unavailable Unavailable Payers Payer Name Policy Type Policy Number Effective Date Expiration Date S ource Problems This patient has no known problems. Allergies, Adverse Reactions, Alerts Allergy Allergy Status Severity Reaction(s) Onset Inactive Treating Comm ents Source Name Type Date Date Clinician amoxicil DA Active U 2017-0 [facility] je[facility]rey 12[facility]07 [facility] [...]
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
== END 2020-08-31 16:46 | disposition home or self-care (01) ==
LOC: ER 15:33
DX: S16.1XXA Strain of muscle, fascia and tendon at neck level, initial encounter (principal); S29.012A Strain of muscle and tendon of back wall of thorax, initial encounter; V49.59XA Passenger injured in collision with other motor vehicles in traffic accident, initial encounter; Y92.481 Parking lot as the place of occurrence of the external cause; Z88.1 Allergy status to other antibiotic agents
CPT/HCPCS: 99282